=== PATIENT | female | born 1980 | race African-American/Black ===

== ENCOUNTER 2017-01-15 10:35 | Emergency (ER) | payer SELFPAY ==
[2017-01-15] MEDS ORDERED: OXYCODONE-ACETAMINOPHEN 5-325 MG TABLET PO ONE (10:59)
--- NOTE | 2017-01-15 11:02 | ER Document Report ---
ED General - General Chief Complaint: Back Pain Stated Complaint: BACK/LEFT LEG PAIN Time Seen by Provider: 01/15/17 10:59 Notes: Patient presents due to left lower extremity pain. She states the pain is in the calf as well as in the inner left thigh. It is worse with walking. He also feels that her veins been more distended in this leg. In addition she complains of 3 weeks of chest pain and intrascapular back pain. No cough cold or congestion. She denies any history of hormone use. She does smoke. Patient states her mom did have a history of a blood clot. Patient states that the pain in the leg is constant. It is moderate. It is worse with movement and better with rest. It does radiate from the left hip area down into the left calf. It is sharp. TRAVEL OUTSIDE OF THE [place] IN LAST 30 DAYS: No - Related Data Allergies/Adverse Reactions: No Known Allergies Allergy (Unverified 01/15/17 10:40) Past Medical History - General Information source: Patient - Social History Smoking Status: Current Every Day Smoker Chew tobacco use (# tins/day): No Frequency of alcohol use: Occasional Drug Abuse: None Family History: Reviewed & Not Pertinent - Past Medical History Cardiac Medical History: Reports: Hx Hypercholesterolemia, Hx Hypertension Renal/ Medical History: Denies: Hx Peritoneal Dialysis Musculoskeltal Medical History: Reports Hx Arthritis - Immunizations Hx Diphtheria, Pertussis, Tetanus Vaccination: Yes Review of Systems - Review of Systems Constitutional: denies: Chills, Fever Cardiovascular: Chest pain. denies: Palpitations Respiratory: Cough. denies: Short of breath Gastrointestinal: denies: Diarrhea, Vomiting -: Yes All other systems reviewed and negative Physical Exam - Vital signs Vitals: Temp Pulse Resp BP Pulse Ox 98.7 F 82 20 130/74 H 98 01/15/17 10:39 01/15/17 10:39 01/15/17 10:39 01/15/17 10:39 01/15/17 10:39 Interpretation: Normal - General General appearance: Appears well, Alert - HEENT Head: Normocephalic, Atraumatic Eyes: Normal Pupils: PERRL - Respiratory Respiratory status: No respiratory distress Chest status: Nontender Breath sounds: Normal Chest palpation: Normal - Cardiovascular Rhythm: Regular Heart sounds: Normal auscultation Murmur: No - Abdominal Inspection: Normal Distension: No distension Bowel sounds: Normal Tenderness: Nontender Organomegaly: No organomegaly - Back Back: Normal, Nontender - Extremities General upper extremity: Normal inspection, Nontender, Normal color, Normal ROM , Normal temperature General lower extremity: Normal inspection, Nontender, Normal color, Normal ROM , Normal temperature, Normal weight bearing. No: Semaj's sign - Neurological Neuro grossly intact: Yes Cognition: Normal Orientation: AAOx4 [place] Coma Scale Eye Opening: Spontaneous Álvaro Coma Scale Verbal: Oriented Hun[place] Coma Scale Motor: Obeys Commands Álvaro Coma Scale Total: 15 Speech: Normal Motor strength normal: LUE, RUE, LLE, RLE Sensory: Normal - Psychological Associated symptoms: Normal affect, Normal mood - Skin Skin Temperature: Warm Skin Moisture: Dry Skin Color: Normal Course - Vital Signs Vital signs: Temp Pulse Resp BP Pulse Ox 98.7 F 82 20 130/74 H 98 01/15/17 10:39 01/15/17 10:39 01/15/17 10:39 01/15/17 10:39 01/15/17 10:39 - Laboratory Laboratory results interpreted by me: 01/15/17 11:05 Ur Leukocyte Esterase TRACE H - Diagnostic Test Radiology reviewed: Image reviewed, Reports reviewed - US neg for dvt Discharge - Discharge Clinical Impression: Left leg pain Condition: Stable Disposition: HOME, SELF-CARE Additional Instructions: Please call your primary care physician as soon as possible to arrange follow-up Prescriptions: Hydrocodone/Acetaminophen [Benton 5-325 mg Tablet] 1 tab PO Q6 PRN #10 tablet PRN Reason: Forms: Elevated Blood Pressure Referrals: GILMAR MALAGON MD [ACTIVE STAFF] - Follow up as needed
[2017-01-15 11:33] LABS: APPEARANCE,URINE SLIGHTLY-CLOUDY; BILIRUBIN,URINE NEGATIVE (NEGATIVE); GLUCOSE, URINE NEGATIVE (NEGATIVE); KETONES,URINE NEGATIVE (NEGATIVE); LEUKOCYTE ESTERASE,URINE TRACE (NEGATIVE); NITRITE,URINE NEGATIVE (NEGATIVE); PROTEIN,URINE NEGATIVE (NEGATIVE); UROBILINOGEN,URINE NEGATIVE mg/dL (<2.0)
--- NOTE | 2017-01-15 12:07 | RADIOLOGY REPORT (SQ) ---
EXAM DESCRIPTION: CHEST PA/LAT COMPLETED DATE/TIME: 01/15/2017 11:59 am REASON FOR STUDY: cp/intrascap pain COMPARISON: None. EXAM PARAMETERS: NUMBER OF VIEWS: two views TECHNIQUE: Digital Frontal and Lateral radiographic views of the chest acquired. RADIATION DOSE: NA LIMITATIONS: none FINDINGS: LUNGS AND PLEURA: No opacities, masses or pneumothorax. No pleural effusion. MEDIASTINUM AND HILAR STRUCTURES: No masses or contour abnormalities. HEART AND VASCULAR STRUCTURES: Heart normal size. No evidence for failure. BONES: No acute findings. HARDWARE: None in the chest. OTHER: No other significant finding. IMPRESSION: NO SIGNIFICANT RADIOGRAPHIC FINDING IN THE CHEST. TECHNICAL DOCUMENTATION: JOB ID: [id number] [employer]- All Rights Reserved
--- NOTE | 2017-01-15 14:07 | RADIOLOGY REPORT (SQ) ---
EXAM DESCRIPTION: VENOUS UNILATERAL LOWER COMPLETED DATE/TIME: 01/15/2017 1:58 pm REASON FOR STUDY: left leg pain COMPARISON: None. TECHNIQUE: Dynamic and static rashid scale and color images acquired of the left leg venous system. Se lected spectral images acquired with additional compression and augmentation maneuvers. The contralat eral common femoral vein and saphenofemoral junction were also imaged. Images stored on PACS. LIMITATIONS: None. FINDINGS: COMMON FEMORAL: Normal phasicity, compression and augmentation. No visualized echogenic ma terial on rashid scale. No defects on color images. FEMORAL: Normal compression and augmentation. No visualized echogenic material on rashid scale. No defe cts on color images. POPLITEAL: Normal compression, augmentation. No visualized echogenic material on rashid scale. No defec ts on color images. CALF VESSELS: Normal compression, augmentation. No visualized echogenic material on rashid scale. No de fects on color images. GSV and SSV: Normal compression, augmentation. No visualized echogenic material on rashid scale. No def ects on color images. ANY DEEP VENOUS INSUFFICIENCY: Not evaluated. ANY EVIDENCE OF POPLITEAL CYST: No. OTHER: No other significant finding. CONTRALATERAL COMMON FEMORAL VEIN AND SAPHENOFEMORAL JUNCTION: Normal phasicity, compression and augmentation. No visualized echogenic material on rashid scale. No de fects on color images. IMPRESSION: NO EVIDENCE DVT OR SVT IN THE LEFT LEG. TECHNICAL DOCUMENTATION: JOB ID: [id number] [employer]- All Rights Reserved
[2017-01-15 14:31] VITALS: BP 123/66
== END 2017-01-15 14:25 | disposition home or self-care (01) ==
LOC: ER 10:35
DX: M79.605 Pain in left leg (principal); M54.9 Dorsalgia, unspecified; F17.200 Nicotine dependence, unspecified, uncomplicated
CPT/HCPCS: 71020; 81001; 81025; 93971; 99284

== ENCOUNTER 2017-02-15 05:42 | Emergency (ER) | payer MEDICAID ==
[2017-02-15] MEDS ORDERED: PREDNISONE 20 MG TABLET PO ONE (06:32)
--- NOTE | 2017-02-15 06:42 | ER Document Report ---
ED General - General Chief Complaint: Leg Pain Stated Complaint: LEFT SIDE PAIN Time Seen by Provider: 02/15/17 06:02 TRAVEL OUTSIDE OF THE [place] IN LAST 30 DAYS: No - HPI Patient complains to provider of: Left leg pain Notes: Patient coming in for evaluation of left leg pain. Patient states pain starts in the middle of the gluteus padmaja and then goes down the patient's leg. Patient states has a history of arthritis. Patient denies fevers chills nausea vomiting diarrhea denies any trauma - Related Data Allergies/Adverse Reactions: No Known Allergies Allergy (Unverified 01/15/17 10:40) Past Medical History - Social History Smoking Status: Current Every Day Smoker Chew tobacco use (# tins/day): No Frequency of alcohol use: Social Drug Abuse: None Family History: Reviewed & Not Pertinent Patient has suicidal ideation: No Patient has homicidal ideation: No - Past Medical History Cardiac Medical History: Reports: Hx Hypercholesterolemia, Hx Hypertension Renal/ Medical History: Denies: Hx Peritoneal Dialysis Musculoskeltal Medical History: Reports Hx Arthritis - Immunizations Hx Diphtheria, Pertussis, Tetanus Vaccination: Yes Review of Systems - Review of Systems Constitutional: No symptoms reported EENT: No symptoms reported Cardiovascular: No symptoms reported Respiratory: No symptoms reported Gastrointestinal: No symptoms reported Genitourinary: No symptoms reported Female Genitourinary: No symptoms reported Musculoskeletal: No symptoms reported - Hip pain Skin: No symptoms reported Hematologic/Lymphatic: No symptoms reported Neurological/Psychological: No symptoms reported Physical Exam - Vital signs Vitals: Temp Pulse Resp BP Pulse Ox 98.7 F 101 H 18 129/76 H 97 02/15/17 05:47 02/15/17 05:47 02/15/17 05:47 02/15/17 05:47 02/15/17 05:47 Interpretation: Normal - General General appearance: Appears well, Alert - HEENT Head: Normocephalic, Atraumatic Eyes: Normal Pupils: PERRL - Respiratory Respiratory status: No respiratory distress Chest status: Nontender Breath sounds: Normal Chest palpation: Normal - Cardiovascular Rhythm: Regular Heart sounds: Normal auscultation Murmur: No - Abdominal Inspection: Normal Distension: No distension Bowel sounds: Normal Tenderness: Nontender Organomegaly: No organomegaly - Back Back: Normal, Nontender Notes: Tenderness to palpation of the middle of the gluteus minimus muscle does reproduce symptoms - Extremities General upper extremity: Normal inspection, Nontender, Normal color, Normal ROM , Normal temperature General lower extremity: Normal inspection, Nontender, Normal color, Normal ROM , Normal temperature, Normal weight bearing. No: Semaj's sign - Neurological Neuro grossly intact: Yes Cognition: Normal Orientation: AAOx4 Álvaro Coma Scale Eye Opening: Spontaneous [place] Coma Scale Verbal: Oriented [place] Coma Scale Motor: Obeys Commands [place] Coma Scale Total: 15 Speech: Normal Motor strength normal: LUE, RUE, LLE, RLE Sensory: Normal - Psychological Associated symptoms: Normal affect, Normal mood - Skin Skin Temperature: Warm Skin Moisture: Dry Skin Color: Normal Course - Re-evaluation Re-evalutation: 02/15/17 13:32 The patient presents with low back pain without signs of spinal cord compression , cauda equina syndrome, infection, aneurysm, or other serious etiology. The patient is neurologically intact. Given the extremely low risk of these diagnoses further testing and evaluation for these possibilities does not appear to be indicated at this time. The patient has been instructed to return if the symptoms worsen or change in any way. Patient with classic sciatic symptoms. Will treat with prednisone and anti-inflammatory medications. Patient encouraged follow-up primary care physician. - Vital Signs Vital signs: Temp Pulse Resp BP Pulse Ox 98.1 F 88 18 124/82 97 02/15/17 07:34 02/15/17 07:34 02/15/17 07:34 02/15/17 07:34 02/15/17 07:34 Discharge - Discharge Clinical Impression: Sciatic leg pain Condition: Good Disposition: HOME, SELF-CARE Instructions: Family Physicians / Practices, Sciatica ([facility], [facility]) Additional Instructions: Please follow-up with primary care physicians provided. Return to the ER if symptoms worsen. Take medication as prescribed. Would recommend doing gentle range of motion exercises. You may look on line for piriformis muscle stretches which will help out with your sciatic pain continue to take Tylenol and Motrin for your pain. Take Ultram for very severe pain. Prescriptions: Prednisone [Deltasone 20 mg Tablet] 3 tab PO DAILY 5 Days tablet Tramadol HCl [Ultram 50 mg Tablet] 50 mg PO ASDIR PRN #14 tablet PRN Reason:
[2017-02-15 07:35] VITALS: BP 124/82
== END 2017-02-15 07:35 | disposition home or self-care (01) ==
LOC: ER 05:42
DX: M54.32 Sciatica, left side (principal); M79.605 Pain in left leg; F17.200 Nicotine dependence, unspecified, uncomplicated
CPT/HCPCS: 99283; J7512

== ENCOUNTER 2018-01-15 09:50 | Emergency (ER) | payer SELFPAY ==
[2018-01-15] MEDS ORDERED: ACETAMINOPHEN 325 MG TABLET PO ONE (10:11)
--- NOTE | 2018-01-15 10:17 | ER Document Report ---
ED Extremity Problem, Lower - General Chief Complaint: Foot Pain Stated Complaint: FOOT PAIN Time Seen by Provider: 01/15/18 10:01 Mode of Arrival: Wheelchair Information source: Patient Notes: 37-year-old female presents to ED complaining of right foot and hip and left knee pain. She states she has degenerative hip disease on the right and now it is causing her left knee and right foot to increase in pain with swelling to the right foot and leg. She states she also has peripheral vascular disease and smokes a pack a day. Will order an x-ray of the right hip right foot left knee and venous Doppler for the right leg. TRAVEL OUTSIDE OF THE [place] IN LAST 30 DAYS: No - HPI Patient complains to provider of: Pain, Swelling Location: Foot, Knee, Thigh - hip Occurred: Other - gradual no fall Where: Indoors Onset/Duration: Gradual Quality of pain: Achy, Sharp Severity: Moderate Pain Level: 4 Context: Fell Recent injury: No Associated symptoms: Painful ambulation Exacerbated by: Movement, Walking Relieved by: Nothing - Related Data Allergies/Adverse Reactions: No Known Allergies Allergy (Verified 01/15/18 09:55) Past Medical History - General Information source: Patient - Social History Smoking Status: Current Every Day Smoker Cigarette use (# per day): Yes - ppd Chew tobacco use (# tins/day): No Smoking Education Provided: Yes - 4min Frequency of alcohol use: Occasional Drug Abuse: None Occupation: arcgis developer Lives with: Family Family History: Reviewed & Not Pertinent Patient has suicidal ideation: No Patient has homicidal ideation: No - Past Medical History Cardiac Medical History: Reports: Hx Hypercholesterolemia, Hx Hypertension Pulmonary Medical History: Reports: None EENT Medical History: Reports: None Renal/ Medical History: Reports: None Malignancy Medical History: Reports: None GI Medical History: Reports: None Musculoskeletal Medical History: Reports Hx Arthritis, Reports Hx Musculoskeletal Deformity Skin Medical History: Reports None Psychiatric Medical History: Reports: None Traumatic Medical History: Reports: None Infectious Medical History: Reports: None Past Surgical History: Reports: Hx Tubal Ligation - Immunizations Hx Diphtheria, Pertussis, Tetanus Vaccination: Yes Review of Systems - Review of Systems Constitutional: No symptoms reported EENT: No symptoms reported Cardiovascular: No symptoms reported Respiratory: No symptoms reported Gastrointestinal: No symptoms reported Genitourinary: No symptoms reported Female Genitourinary: No symptoms reported Musculoskeletal: Joint pain - Hip right foot left knee pain, Muscle pain, Muscle stiffness, Other - Swelling to the right leg Skin: No symptoms reported Hematologic/Lymphatic: No symptoms reported Neurological/Psychological: No symptoms reported -: Yes All other systems reviewed and negative Physical Exam - Vital signs Vitals: Temp Pulse Resp BP Pulse Ox 98.4 F 85 20 135/70 H 95 01/15/18 10:02 01/15/18 10:02 01/15/18 10:02 01/15/18 10:02 01/15/18 10:02 Interpretation: Normal - General General appearance: Appears well, Alert - HEENT Head: Normocephalic, Atraumatic Eyes: Normal Pupils: PERRL - Respiratory Respiratory status: No respiratory distress Chest status: Nontender Breath sounds: Normal Chest palpation: Normal - Cardiovascular Rhythm: Regular Heart sounds: Normal auscultation Murmur: No - Abdominal Inspection: Normal Distension: No distension Bowel sounds: Normal Tenderness: Nontender Organomegaly: No organomegaly - Back Back: Normal, Nontender - Extremities General upper extremity: Normal inspection, Nontender, Normal color, Normal ROM , Normal temperature General lower extremity: Normal color, Normal temperature. No: Semaj's sign Hip: Tender, Pain with ROM - Degenerative hip disease Knee: Tender, Pain with ROM, Patellar tendon intact, Popliteal fossa tender, Tender joint line Ankle: Tender, Edema Foot: Tender, Edema, No evidence of FB - Neurological Neuro grossly intact: Yes Cognition: Normal Orientation: AAOx4 [place] Coma Scale Eye Opening: Spontaneous [place] Coma Scale Verbal: Oriented Álvaro Coma Scale Motor: Obeys Commands Álvaro Coma Scale Total: 15 Speech: Normal Motor strength normal: LUE, RUE, LLE, RLE Sensory: Normal - Psychological Associated symptoms: Normal affect, Normal mood - Skin Skin Temperature: Warm Skin Moisture: Dry Skin Color: Normal Course - Re-evaluation Re-evalutation: 01/15/18 12:16 Trace discussed with patient as well is the venous Doppler. CD of x-rays given to patient to follow-up with her orthopedic. She states she goes to Orth though at [facility]. There is no acute changes. Patient is able to move and walk with a even steady gait. She did not fall. Will discharge home. She refused an Tejas wrap a knee immobilizer or crutches. - Vital Signs Vital signs: Temp Pulse Resp BP Pulse Ox 97.5 F 67 20 139/89 H 98 01/15/18 12:20 01/15/18 12:20 01/15/18 12:20 01/15/18 12:20 01/15/18 12:20 - Diagnostic Test Radiology reviewed: Image reviewed, Reports reviewed Discharge - Discharge Clinical Impression: Pain in right hip, Pain in right foot, Pain in right leg Pain in left knee Qualifiers: Chronicity: unspecified Qualified Code(s): M25.562 - Pain in left knee Condition: Stable Disposition: HOME, SELF-CARE Instructions: Family Physicians / Practices Additional Instructions: You were seen today for pain in the right leg right hip and right foot. The x- ray showed no acute changes on the right hip or foot there are chronic changes the venous Doppler was negative for a blood clot. You also have pain in your left knee. It showed some subluxation of the patella but you are able to walk with a steady gait so there may be some tendon or ligament stretching but it is not to the point that she cannot walk. I have given you CDs of your x-rays to take to your orthopedic doctor to follow-up. I have also given you off for several days so that you can call orthopedics and get a follow-up appointment sooner than later. You state you have a Tejas wrap at home please apply this to your knee and to you follow-up with orthopedics. USE OF [id number] IBUPROFEN: Ibuprofen (Advil, Nuprin, Medipren, Motrin IB) is a medication for fever and pain control. In addition, it has anti- inflammatory effects which may be beneficial, especially in the treatment of injuries. It's best to take ibuprofen with food. Persons with ulcer disease or allergy to aspirin should notify their physician of this before taking ibuprofen. Ibuprofen can be given every four to six hours, for a total of four doses daily. Age Pain or fever dose Antiinflammatory dose 6-8 yr 200 mg (1 tab) 200 mg (1 tab) 9-11 yr 200 mg (1 tab) 200-400 mg (1-2 tab) 11-14 yr 200-400 mg (1-2 tab) 400 mg (2 tab) 15-adult 400 mg (2 tab) 600 mg (3 tab) FOLLOW-UP CARE: If you have been referred to a physician for follow-up care, call the physician s office for an appointment as you were instructed or within the next two days. If you experience worsening or a significant change in your symptoms, notify the physician immediately or return to the Emergency Department at any time for re-evaluation. Forms: Elevated Blood Pressure, Smoking Cessation Education, Return to Work
--- NOTE | 2018-01-15 11:04 | RADIOLOGY REPORT (SQ) ---
EXAM DESCRIPTION: KNEE LEFT 4 VIEW COMPLETED DATE/TIME: 01/15/2018 10:45 am REASON FOR STUDY: pain swelling COMPARISON: None. NUMBER OF VIEWS: Four views. TECHNIQUE: AP, lateral, and both oblique radiographic images acquired of the left knee. LIMITATIONS: None. FINDINGS: MINERALIZATION: Normal. BONES: No acute fracture or dislocation. No worrisome bone lesions. JOINT: On the AP view the patella appears to be subluxed laterally and clinical correlation is recomm ended. The patella is also identified somewhat proximally in position and the possibility of a aviles lar tendon injury should be considered. SOFT TISSUES: No soft tissue swelling. No radio-opaque foreign body. OTHER: No other significant finding. IMPRESSION: No acute fracture. On the AP view the patella appears to be subluxed laterally and prox imally as noted above and clinical correlation is recommended. Other findings as noted above TECHNICAL DOCUMENTATION: JOB ID: [id number] [employer]- All Rights Reserved Reading location - IP/workstation name: [email or web address]
--- NOTE | 2018-01-15 11:17 | RADIOLOGY REPORT (SQ) ---
EXAM DESCRIPTION: FOOT RIGHT COMPLETE COMPLETED DATE/TIME: 01/15/2018 10:45 am REASON FOR STUDY: pain swelling COMPARISON: None. NUMBER OF VIEWS: Three views. TECHNIQUE: AP, lateral and oblique radiographic images acquired of the right foot. LIMITATIONS: None. FINDINGS: MINERALIZATION: Normal. BONES: No acute fracture or dislocation. No worrisome bone lesions. JOINTS: No effusions. SOFT TISSUES: No soft tissue swelling. No foreign body. OTHER: No other significant finding. IMPRESSION: NEGATIVE STUDY OF THE RIGHT FOOT. NO RADIOGRAPHIC EVIDENCE OF ACUTE INJURY. TECHNICAL DOCUMENTATION: JOB ID: [id number] [employer]- All Rights Reserved Reading location - IP/workstation name: [email or web address]
--- NOTE | 2018-01-15 11:44 | RADIOLOGY REPORT (SQ) ---
EXAM DESCRIPTION: HIP RIGHT AP/LATERAL COMPLETED DATE/TIME: 01/15/2018 10:45 am REASON FOR STUDY: pain swelling COMPARISON: None. NUMBER OF VIEWS: Two views. TECHNIQUE: AP pelvis and additional frog-leg view of the right hip. LIMITATIONS: None. FINDINGS: MINERALIZATION: Normal. RIGHT HIP: No fracture dislocation. Mild degenerative changes. LEFT HIP: Mild degenerative changes. PUBIS AND ISCHIUM: No fracture. PELVIS: No fracture. SACRUM: No fracture or dislocation. No worrisome bone lesions. LOWER LUMBAR SPINE: No fracture or dislocation. No worrisome bone lesions. No significant disc disea se. SOFT TISSUES: No findings. OTHER: No other significant finding. IMPRESSION: Degenerative changes of both hips. TECHNICAL DOCUMENTATION: JOB ID: [id number] [employer]- All Rights Reserved Reading location - IP/workstation name: [email or web address]
[2018-01-15 12:21] VITALS: BP 139/89
--- NOTE | 2018-01-15 15:21 | XCELERA REPORT ---
[address] [address] Lower Extremity Venous Evaluation Name: MARK RASHID Age: 37 yrs Gender: Female : 1980 Patient Status: Emergency Patient Location: ER Study Date: 01/15/2018 11:20 AM Procedure: Color flow and duplex imaging of the veins of the right lower extremity as well as the left Common Femoral vein. Reason For Study: right swelling Ordering Physician: SALINAS FANG Performed By: Jean Garcias Right Sided Venous Evaluation Normal vessel filling wall to wall, compression and augmentation as well as Colour flow down to the infrageniculate veins. Left Sided Venous Evaluation The left common femoral vein is fully compressible. Spontaneous and phasic flow is present in the left common femoral vein. Interpretation Summary No duplex evidence of DVT or obstruction in the right lower extremity nor in the left Common Femoral vein. : SALINAS FANG > Tyrone Posey
== END 2018-01-15 12:27 | disposition home or self-care (01) ==
LOC: ER 09:50
DX: M79.671 Pain in right foot (principal); M25.562 Pain in left knee; M25.551 Pain in right hip; M79.604 Pain in right leg; F17.210 Nicotine dependence, cigarettes, uncomplicated; E78.00 Pure hypercholesterolemia, unspecified; I10 Essential (primary) hypertension
CPT/HCPCS: 93971; 99284; 99406

== ENCOUNTER 2018-04-20 08:50 | Emergency (ER) | payer MEDICAID ==
[2018-04-20 09:02] VITALS: BP 136/78
[2018-04-20] MEDS ORDERED: CEPHALEXIN 500 MG CAPSULE PO ONE (09:21)
[2018-04-20] MEDS ORDERED: SULFAMETHOXAZOLE/TRIMETHOPRIM 800-160 MG TABLET PO ONE (09:21)
--- NOTE | 2018-04-20 09:24 | ER Document Report ---
HPI - HPI Pain Level: 4 Notes: Patient is a 37-year-old female who presents to the emergency department with chief complaint of pain to her left lower extremity. Patient reports that she has an abscess on her left casanova area. She states it has been there for several days. She reports last night it drained and she did have some relief after that. Patient reports history of having abscesses in the past, states she has had to have them drained. Patient denies any history of diabetes or MRSA. Past Medical History - General Information source: Patient - Social History Smoking Status: Never Smoker Frequency of alcohol use: None Drug Abuse: None Family History: Reviewed & Not Pertinent - Past Medical History Cardiac Medical History: Reports: Hx Hypercholesterolemia, Hx Hypertension Renal/ Medical History: Denies: Hx Peritoneal Dialysis Musculoskeletal Medical History: Reports Hx Arthritis, Reports Hx Musculoskeletal Deformity Past Surgical History: Reports: Hx Tubal Ligation - Immunizations Hx Diphtheria, Pertussis, Tetanus Vaccination: Yes Vertical Provider Document - CONSTITUTIONAL Notes: PHYSICAL EXAMINATION: GENERAL: Well-appearing, well-nourished and in no acute distress. HEAD: Atraumatic, normocephalic. EYES: Pupils equal round extraocular movements intact, conjunctiva are normal. ENT: Nares patent NECK: Normal range of motion LUNGS: No respiratory distress Musculoskeletal: Normal range of motion NEUROLOGICAL: Normal speech, normal gait. PSYCH: Normal mood, normal affect. SKIN: Warm, Dry, normal turgor, 2 cm x 2 cm area of induration and fluctuance noted to left lower extremity below the knee. There is a larger surrounding area of erythema that extends just above the ankle joint. This extension is approximately 8 cm past the area of the abscess. - INFECTION CONTROL TRAVEL OUTSIDE OF THE [place] IN LAST 30 DAYS: No Course - Re-evaluation Re-evalutation: 04/20/18 09:23 Incision and drainage performed, see procedure note. Patient discharged home in stable condition. - Vital Signs Vital signs: Temp Pulse Resp BP Pulse Ox 99.1 F 84 136/78 H 95 04/20/18 09:01 04/20/18 09:01 04/20/18 09:01 04/20/18 09:01 Procedures - Incision and Drainage Left leg Type: Simple Anesthetic type: 1% Lidocaine Blade size: 11 I&D procedure: Betadine prep applied, Shurclens applied Incision Method: Incision made by scalpel Discharge - Discharge Clinical Impression: Abscess Condition: Stable Disposition: HOME, SELF-CARE Additional Instructions: ABSCESS: You have an abscess (boil). This a pus-forming infection, usually due to staph. Some boils may be left to drain on their own, but most require lancing. From the time the tender lump first appears, it may be three or four days before the abscess is ready to ivett. Local heat and rest help at this stage of treatment. An antibiotic may prevent spread of the infection. Once the abscess is opened, packing may be placed into it. This is done so pus is not sealed inside by premature closure of the cavity. The packing will be removed at your follow-up visit or you may be advised to remove it yourself at home. Sometimes this packing must be replaced a few times during healing. The wound will heal with surprisingly little scar. Depending on the size and location of an abscess, healing can take one to four weeks. You may shower and wash the area around the incision site two or three times a day. Antibiotics may be prescribed, but are usually not necessary after an abscess has been drained. If you develop fever, chills, worsening pain, or increasing swelling in the area, call the doctor or return immediately. POST INCISION AND DRAINAGE: You have had an incision made to allow drainage of an abscess. The incision must remain open so that pus and debris can drain from the wound. If the abscess cavity is large, packing is placed. This keeps the tissues from collapsing and trapping pus inside, while the body shrinks the cavity. The packing may need to be replaced every day or two. The physician will instruct you on the packing. Keep a bulky dressing over the area. Replace it if it becomes saturated with blood or pus. Do not disturb the packing (if present). You may shower and cleanse the area with gentle soap and warm water two or three times a day. Local warmth may be soothing, and may promote faster healing. Return if you develop high fever or chills, or if you note spreading redness, increasing swelling, or increasing tenderness. CEPHALEXIN: The antibiotic you've been prescribed is a member of the cephalosporin class. This type of antibiotic covers a wide variety of infections, including those of the skin, lungs, and urinary tract. It's useful for staph infections. This antibiotic is slightly similar to the penicillin family. In rare cases , a person who is allergic to penicillin will also be allergic to this medication. If you have had a severe allergic reaction to penicillin, and have not taken this antibiotic since that time, notify your doctor. Antibiotics which cover many germs ("broad spectrum" antibiotics) are more likely to cause diarrhea or "yeast" infections. Women prone to vaginal yeast problems may suffer an attack after taking this antibiotic. In infants, oral thrush (white spots "stuck" on the cheek) or yeast diaper rash may result. See your doctor if these problems occur. Call at once if you develop itching, hives , shortness of breath, or lightheadedness. TRIMETHOPRIM-SULFA: You have been given a prescription for trimethoprim-sulfa (TMS, Septra, Bactrim). This is a combination antibiotic of the sulfa class, often used for urinary tract infections, middle ear infections, bronchitis, shigella intestinal infection, and Pneumocystis pneumonia. TMS is usually well-tolerated. Occasional side effects include nausea and decreased appetite. Septra is not recommended for infants less than two months of age. Do not take this medication if you have experienced severe side effects or allergy to sulfa medicine. You should stop this medicine at once and contact your physician if you develop any rash, joint pain, shortness of breath, bruising, or jaundice ( yellow color in the skin), or if you develop any other new or unusual symptoms. FOLLOW-UP CARE: Most simple abscesses will not require a follow up visit. If you had packing placed in the abscess, remove it as instructed by the physician. If you have been referred to a physician for follow-up care, call the physicians office for an appointment as you were instructed or within the next two days. If you experience worsening or a significant change in your symptoms, return to the Emergency Department at any time for re-evaluation. Please take the antibiotics as prescribed. Complete the entire course even if your symptoms resolved. Take ibuprofen 600 mg every 6 hours, this will help with the inflammation. Use warm soaks to the area 3-4 times daily. Keep clean and dry. Follow-up with your primary care provider in the next 3-5 days for follow-up. Return to the emergency department if you develop any of the above warning signs such as worsening of the pain, streaking from the area, fever or any other symptom that is concerning to you. Prescriptions: Hydrocodone/Acetaminophen [Hydrocodon-Acetaminophen 5-325] 1 each PO Q4H PRN # 10 tablet PRN Reason: For Pain Forms: Return to Work
== END 2018-04-20 10:00 | disposition home or self-care (01) ==
LOC: ER 08:50
DX: L02.416 Cutaneous abscess of left lower limb (principal); M79.605 Pain in left leg; I10 Essential (primary) hypertension
CPT/HCPCS: 99283; 10060; J3490

== ENCOUNTER 2018-07-18 10:19 | Emergency (ER) | payer SELFPAY ==
[2018-07-18] MEDS ORDERED: IPRATROPIUM/ALBUTEROL 0.5-2.5 MG/3 ML AMPUL NEB ONE ×2 (10:51→11:31)
[2018-07-18] MEDS ORDERED: PREDNISONE 20 MG TABLET PO ONE (10:52)
--- NOTE | 2018-07-18 10:53 | ER Document Report ---
ED Medical Screen (RME) - General Chief Complaint: Cough Stated Complaint: FLU SYMPTOMS Time Seen by Provider: 07/18/18 10:49 TRAVEL OUTSIDE OF THE [place] IN LAST 30 DAYS: No - HPI Notes: 07/18/18 10:52 Patient smokes 10 cigarettes a day cough feeling unwell body aches for the last 4 days no flu vaccination - Related Data Allergies/Adverse Reactions: No Known Allergies Allergy (Verified 01/15/18 09:55) Past Medical History - Past Medical History Cardiac Medical History: Reports: Hx Hypercholesterolemia, Hx Hypertension Renal/ Medical History: Denies: Hx Peritoneal Dialysis Musculoskeltal Medical History: Reports Hx Arthritis, Reports Hx Musculoskeletal Deformity Past Surgical History: Reports: Hx Tubal Ligation - Immunizations Hx Diphtheria, Pertussis, Tetanus Vaccination: Yes Review of Systems - Review of Systems Respiratory: Cough, Short of breath Physical Exam - Vital signs Vitals: Temp Pulse Resp BP Pulse Ox 98.8 F 100 16 159/85 H 94 07/18/18 10:38 07/18/18 10:38 07/18/18 10:38 07/18/18 10:38 07/18/18 10:38 - Respiratory Breath sounds: Rhonchi, Wheezing - Abdominal Inspection: Morbidly Obese Course - Vital Signs Vital signs: Temp Pulse Resp BP Pulse Ox 98.8 F 100 16 159/85 H 94 07/18/18 10:38 07/18/18 10:38 07/18/18 10:38 07/18/18 10:38 07/18/18 10:38
[2018-07-18 11:30] LABS: A TYPE INFLUENZA AG NEGATIVE (NEGATIVE); B INFLUENZA AG NEGATIVE (NEGATIVE)
--- NOTE | 2018-07-18 11:32 | ER Document Report ---
ED General - General Chief Complaint: Cough Stated Complaint: FLU SYMPTOMS Time Seen by Provider: 07/18/18 10:49 Primary Care Provider: SHAYY HEADLEY MD [Primary Care Provider] - Follow up as needed KASANDRA STILES MD [ACTIVE STAFF] - Follow up in 3-5 days Mode of Arrival: Ambulatory Information source: Patient Notes: This is a 37-year-old female with a history of childhood asthma who presents to the emergency room with sore throat, cough, congestion, shortness of breath and wheezing. She does report significant body aches. She denies any significant headache or photophobia or neck stiffness. She reports sinus congestion and sinus discharge for 10 days. TRAVEL OUTSIDE OF THE [place] IN LAST 30 DAYS: No - HPI Onset: Last week Onset/Duration: Gradual Quality of pain: No pain Associated symptoms: Chills, Nonproductive cough, Fever, Shortness of breath Exacerbated by: Denies Relieved by: Denies Similar symptoms previously: No Recently seen / treated by doctor: No - Related Data Allergies/Adverse Reactions: No Known Allergies Allergy (Verified 01/15/18 09:55) Past Medical History - General Information source: Patient - Social History Smoking Status: Current Every Day Smoker Cigarette use (# per day): Yes - 10 cigarettes a day Chew tobacco use (# tins/day): No Frequency of alcohol use: None Drug Abuse: None Lives with: Family Family History: Reviewed & Not Pertinent Patient has suicidal ideation: No Patient has homicidal ideation: No - Past Medical History Cardiac Medical History: Reports: Hx Hypercholesterolemia, Hx Hypertension Renal/ Medical History: Denies: Hx Peritoneal Dialysis Musculoskeletal Medical History: Reports Hx Arthritis, Reports Hx Musculoskelet al Deformity Past Surgical History: Reports: Hx Tubal Ligation - Immunizations Hx Diphtheria, Pertussis, Tetanus Vaccination: Yes Review of Systems - Review of Systems Constitutional: Chills, Fever EENT: Sinus pressure, Sinus discharge Cardiovascular: No symptoms reported Respiratory: See HPI, Short of breath, Wheezing Gastrointestinal: No symptoms reported Genitourinary: No symptoms reported Female Genitourinary: No symptoms reported Musculoskeletal: Other - Muscle aches and pains Skin: No symptoms reported. denies: Lesions, Rash Hematologic/Lymphatic: No symptoms reported Neurological/Psychological: denies: Seizure, Headaches Physical Exam - Vital signs Vitals: Temp Pulse Resp BP Pulse Ox 98.8 F 100 16 159/85 H 94 07/18/18 10:38 07/18/18 10:38 07/18/18 10:38 07/18/18 10:38 07/18/18 10:38 Notes: Physical exam: GENERAL: Patient is alert and oriented and answering questions. Her oxygen saturation was 94% on room air. Her blood pressure is 159/85. She is currently afebrile. HEAD: Atraumatic, normocephalic. EYES: Pupils equal round and reactive to light, extraocular movements intact, sclera anicteric, conjunctiva are normal. ENT: TMs normal, nares patent, oropharynx clear without exudates. Moist mucous membranes. NECK: Normal range of motion, supple without obvious mass or JVD. LUNGS: Bilateral wheezing HEART: Regular rate and rhythm without murmurs, rubs or gallops. ABDOMEN: Soft, normoactive bowel sounds. No tenderness to palpation. No guarding, no rebound. No masses appreciated. EXTREMITIES: Normal range of motion, no pitting or edema. No clubbing or cyanosis. NEUROLOGICAL: Cranial nerves II through XII grossly intact. Normal speech, moving all extremities. PSYCH: Normal mood, normal affect. SKIN: Warm, Dry, normal turgor, no rashes or lesions noted. Course - Re-evaluation Re-evalutation: 07/18/18 19:31 Patient was treated with steroids, dual nebs. Her wheezing did improve. She was ambulated around the emergency room and she looked fine states she was feeling better. Given her sinus symptoms for approximately 10 days, will treat for an acute sinusitis which is caused bronchospasm. Will send home with prednisone and albuterol nebulizers (she does have a home nebulizer). We will also give her an inhaler to go home with. - Vital Signs Vital signs: Temp Pulse Resp BP Pulse Ox 98.9 F 92 12 137/82 H 95 07/18/18 13:14 07/18/18 13:14 07/18/18 13:14 07/18/18 13:14 07/18/18 13:14 - Diagnostic Test Radiology reviewed: Image reviewed, Reports reviewed - X-ray shows no pneumonia Discharge - Discharge Clinical Impression: Sinusitis, Bronchospasm Condition: Stable Disposition: HOME, SELF-CARE Additional Instructions: As we discussed, the chest x-ray did not show pneumonia and the flu studies were negative. Your wheezing a lot. I think the sinus drainage from your sinus infection is causing you to have bronchospasm. Take the antibiotics as prescribed. Use "simply saline" nasal spray: Several times a day for both nostrils. This will keep your draining so that your sinuses can fully heal. Take the prednisone as prescribed. Take the probiotics [id number] (Andorran yogurt, Shane active probiotic drink): These are usually sold next to the [employer] and [employer]. Take the albuterol with nebulizer as needed every 4-6 hours. Return to the emergency room for worsening shortness of breath, worsening weakness, any concerns or getting worse. Prescriptions: Albuterol Sulfate [Albuterol Sulfate 5mg/1 mL] 5 mg PO Q4 PRN #14 ml PRN Reason: Amox Tr/Potassium Clavulanate [Augmentin 875-125 Tablet] 1 tab PO BID #20 tablet Prednisone [Deltasone 20 mg Tablet] 3 tab PO DAILY 5 Days tablet Forms: Return to Work Referrals: SHAYY HEADLEY MD [Primary Care Provider] - Follow up as needed KASANDRA STILES MD [ACTIVE STAFF] - Follow up in 3-5 days
--- NOTE | 2018-07-18 11:35 | RADIOLOGY REPORT (SQ) ---
EXAM DESCRIPTION: CHEST 2 VIEWS COMPLETED DATE/TIME: 07/18/2018 11:25 am REASON FOR STUDY: sob COMPARISON: Two-view chest 01/15/2017 EXAM PARAMETERS: NUMBER OF VIEWS: two views TECHNIQUE: Digital Frontal and Lateral radiographic views of the chest acquired. RADIATION DOSE: NA LIMITATIONS: none FINDINGS: LUNGS AND PLEURA: No opacities, masses or pneumothorax. No pleural effusion. MEDIASTINUM AND HILAR STRUCTURES: No masses or contour abnormalities. HEART AND VASCULAR STRUCTURES: Heart normal size. No evidence for failure. BONES: No acute findings. HARDWARE: None in the chest. OTHER: No other significant finding. IMPRESSION: NO ACUTE RADIOGRAPHIC FINDING IN THE CHEST. TECHNICAL DOCUMENTATION: JOB ID: [id number] [employer]- All Rights Reserved Reading location - IP/workstation name: [email or web address]
[2018-07-18] MEDS ORDERED: ALBUTEROL SULFATE HFA (90 MCG/PUFF) 8 GM MDI (1 MDI/ER DISP) IH PRN (12:58)
[2018-07-18 13:16] VITALS: BP 137/82
== END 2018-07-18 13:32 | disposition home or self-care (01) ==
LOC: ER 10:19
DX: J98.01 Acute bronchospasm (principal); J01.90 Acute sinusitis, unspecified; R05 Cough; J02.9 Acute pharyngitis, unspecified; R06.02 Shortness of breath; R06.2 Wheezing; M79.10 Myalgia, unspecified site; R09.81 Nasal congestion; R50.9 Fever, unspecified; I10 Essential (primary) hypertension; F17.210 Nicotine dependence, cigarettes, uncomplicated
CPT/HCPCS: 99284; 87804; 71046; J7512; J3490; J7620

== ENCOUNTER 2018-08-21 10:21 | Emergency (ER) | payer SELFPAY ==
[2018-08-21] MEDS ORDERED: IPRATROPIUM/ALBUTEROL 0.5-2.5 MG/3 ML AMPUL NEB ONE (12:24)
--- NOTE | 2018-08-21 12:33 | ER Document Report ---
ED Medical Screen (RME) - General Chief Complaint: Urinary Problem Stated Complaint: BLURRED VISION Time Seen by Provider: 08/21/18 12:21 Primary Care Provider: SHAYY HEADLEY MD [Primary Care Provider] - Follow up as needed Notes: 37-year-old female patient with multiple complaints complaining of cough, wheeze, increased urination, weakness, blurred vision and generally not feeling well. I have greeted and performed a rapid initial assessment of this patient. A comprehensive ED assessment and evaluation of the patient, analysis of test results and completion of the medical decision making process will be conducted by additional ED providers. TRAVEL OUTSIDE OF THE [place] IN LAST 30 DAYS: No - Related Data Allergies/Adverse Reactions: No Known Allergies Allergy (Verified 08/21/18 10:23) Past Medical History - Past Medical History Cardiac Medical History: Reports: Hx Hypercholesterolemia, Hx Hypertension Renal/ Medical History: Denies: Hx Peritoneal Dialysis Musculoskeltal Medical History: Reports Hx Arthritis, Reports Hx Musculoskeletal Deformity Past Surgical History: Reports: Hx Tubal Ligation - Immunizations Hx Diphtheria, Pertussis, Tetanus Vaccination: Yes Physical Exam - Notes Notes: Physical exam: Expiratory wheezes bilaterally, tachycardia Doctor's Discharge - Discharge Referrals: SHAYY HEADLEY MD [Primary Care Provider] - Follow up as needed
[2018-08-21 12:53] LABS: ABSOLUTE BASOPHILS # (AUTO) 0.1 10^3/uL (0.0-0.2); ABSOLUTE EOSINOPHILS # (AUTO) 0.1 10^3/uL (0.0-0.6); ABSOLUTE LYMPHOCYTES (AUTO) 2.4 10^3/uL (0.5-4.7); ABSOLUTE MONOCYTES (AUTO) 1.5 10^3/uL (0.1-1.4); ABSOLUTE NEUT (AUTO) 11.8 10^3/uL (1.7-8.2); BASOPHILS % (AUTO) 0.9 % (0-2); EOSINOPHILS % (AUTO) 0.6 % (0-6); HEMATOCRIT 44.4 % (36.0-47.0); HEMOGLOBIN 14.9 g/dL (12.0-15.5); LYMPHOCYTES % (AUTO) 15.2 % (13-45); MEAN CORPUSCULAR HEMOGLOBIN 28.9 pg (27.0-33.4); MEAN CORPUSCULAR HGB CONC 33.6 g/dL (32.0-36.0); MEAN CORPUSCULAR VOLUME 86 fl (80-97); MONOCYTES % (AUTO) 9.4 % (3-13); PLATELET COUNT 228 10^3/uL (150-450); RED BLOOD COUNT 5.17 10^6/uL (3.72-5.28); RED CELL DISTRIBUTION WIDTH 15.4 % (11.5-14.0); SEGMENTED NEUTROPHILS % (AUTO) 73.9 % (42-78); TOTAL CELLS COUNTED % (AUTO) 100 %
[2018-08-21 12:57] LABS: APPEARANCE,URINE CLEAR; BILIRUBIN,URINE NEGATIVE (NEGATIVE); COLOR,URINE STRAW; GLUCOSE, URINE >=500 mg/dL (NEGATIVE); KETONES,URINE NEGATIVE (NEGATIVE); LEUKOCYTE ESTERASE,URINE NEGATIVE (NEGATIVE); NITRITE,URINE NEGATIVE (NEGATIVE); PROTEIN,URINE NEGATIVE (NEGATIVE); URINE SPECIFIC GRAVITY 1.024; UROBILINOGEN,URINE NEGATIVE mg/dL (<2.0)
[2018-08-21 13:11] LABS: ALANINE AMINOTRANSFERASE 24 U/L (9-52); ALBUMIN 4.4 g/dL (3.5-5.0); ALKALINE PHOSPHATASE 209 U/L (38-126); ANION GAP 12 (5-19); ASPARTATE AMINO TRANSFERASE 18 U/L (14-36); BILIRUBIN,DIRECT 0.3 mg/dL (0.0-0.4); BILIRUBIN,TOTAL 0.4 mg/dL (0.2-1.3); BLOOD UREA NITROGEN 39 mg/dL (7-20); CALCIUM 10.3 mg/dL (8.4-10.2); CARBON DIOXIDE 27 mmol/L (22-30); CHLORIDE 98 mmol/L (98-107); POTASSIUM 5.2 mmol/L (3.6-5.0); SODIUM 137.4 mmol/L (137-145); TOTAL PROTEIN 8.2 g/dL (6.3-8.2)
[2018-08-21 13:23] LABS: GLUCOSE 740 mg/dL (75-110)
--- NOTE | 2018-08-21 13:29 | RADIOLOGY REPORT (SQ) ---
EXAM DESCRIPTION: CHEST 2 VIEWS COMPLETED DATE/TIME: 08/21/2018 1:13 pm REASON FOR STUDY: sob COMPARISON: Two-view chest 07/18/2018, 01/15/2017 EXAM PARAMETERS: NUMBER OF VIEWS: two views TECHNIQUE: Digital Frontal and Lateral radiographic views of the chest acquired. RADIATION DOSE: NA LIMITATIONS: none FINDINGS: LUNGS AND PLEURA: No opacities, masses or pneumothorax. No pleural effusion. MEDIASTINUM AND HILAR STRUCTURES: No masses or contour abnormalities. HEART AND VASCULAR STRUCTURES: Heart normal size. No evidence for failure. BONES: No acute findings. HARDWARE: None in the chest. OTHER: No other significant finding. IMPRESSION: NO ACUTE RADIOGRAPHIC FINDING IN THE CHEST. TECHNICAL DOCUMENTATION: JOB ID: [id number] [employer]- All Rights Reserved Reading location - IP/workstation name: [email or web address]
[2018-08-21] MEDS ORDERED: INSULIN REG, HUMAN 100 UNIT/ML 3 ML VIAL (PYX) SUBCUT ONE (13:30)
[2018-08-21] MEDS ORDERED: NORMAL SALINE 1000 ML 1,000 ML IV ONE ×2 (13:30→17:52)
[2018-08-21 15:25] LABS: VENOUS BLOOD BASE EXCESS 3.1 mmol/L; VENOUS BLOOD HCO3 29.6 mmol/L (20-32); VENOUS BLOOD PCO2 52.2 mmHg (35-63); VENOUS BLOOD PH 7.37 (7.30-7.42)
[2018-08-21] MEDS ORDERED: INSULIN REG, HUMAN 100 UNIT/ML 3 ML VIAL (PYX) IV ONE (16:38)
--- NOTE | 2018-08-21 17:52 | ER Document Report ---
ED General - General Chief Complaint: Urinary Problem Stated Complaint: BLURRED VISION Time Seen by Provider: 08/21/18 12:21 Primary Care Provider: SHAYY HEADLEY MD [ACTIVE STAFF] - Follow up as needed TRAVEL OUTSIDE OF THE [place] IN LAST 30 DAYS: No - HPI Notes: Patient presents to the emergency department for evaluation of multiple complaints. She states she has had blurred vision, increased urinary frequency, generalized malaise and weakness for the last several days. She is also had a cough and a minimal sore throat. No known fevers. - Related Data Allergies/Adverse Reactions: No Known Allergies Allergy (Verified 08/21/18 10:23) Past Medical History - General Information source: Patient - Social History Smoking Status: Current Every Day Smoker Frequency of alcohol use: Rare Drug Abuse: None Family History: DM Patient has suicidal ideation: No Patient has homicidal ideation: No - Past Medical History Cardiac Medical History: Reports: Hx Hypercholesterolemia, Hx Hypertension Renal/ Medical History: Denies: Hx Peritoneal Dialysis Musculoskeletal Medical History: Reports Hx Arthritis, Reports Hx Musculoskeletal Deformity Past Surgical History: Reports: Hx Tubal Ligation - Immunizations Hx Diphtheria, Pertussis, Tetanus Vaccination: Yes Review of Systems - Review of Systems Constitutional: See HPI, Malaise, Weakness EENT: See HPI Cardiovascular: No symptoms reported Respiratory: No symptoms reported Gastrointestinal: No symptoms reported Genitourinary: See HPI Musculoskeletal: No symptoms reported Skin: No symptoms reported Neurological/Psychological: No symptoms reported Physical Exam - Vital signs Vitals: Temp Pulse Resp BP Pulse Ox 99.2 F 118 H 24 H 143/97 H 95 08/21/18 12:24 08/21/18 12:24 08/21/18 12:24 08/21/18 12:24 08/21/18 12:24 Interpretation: Tachycardic - Notes Notes: Vital signs reviewed, please refer to chart. Patient is normocephalic, atraumatic. Pupils equal round, reactive to light. Pharynx is without erythema or exudate. Neck is supple without meningismus. Heart is regular rate and rhythm. Lungs are clear to auscultation bilaterally. Abdomen is soft, nontender, normoactive bowel sounds throughout. Extremities without cyanosis, clubbing, edema. Peripheral pulses are equal. Skin is warm and dry. Patient is awake, alert, neurological exam is nonfocal. Course - Re-evaluation Re-evalutation: 08/21/18 17:46 Presents to the emergency department for evaluation. She has initial orders as placed by triage. She is found to be a new onset diabetic. Her blood sugars over 700, her A1c is over 9. She is given subcutaneous insulin by in triage, given IV insulin myself. She remained stable throughout the course of her stay. Recheck after IV fluids revealed a resolution of her tachycardia. Her heart rate was in the 88-92 range. At 1705, I spoke with Catalina, a nurse practitioner at [facility]. We discussed options with this patient. She states she had actually evaluated this patient a few months ago and had an A1c done which was normal. At this point my suspicion is that she is a simple new onset type II diabetic. She remained stable throughout the course of her stay. She is feeling improved. 08/21/18 18:42 Patient feeling improved. Blood sugar 340. Counseled on starting metformin as per family nurse practitioner's suggestion. Counseled on dietary and lifestyle changes. She is to return with worsening. - Vital Signs Vital signs: Temp Pulse Resp BP Pulse Ox 99.2 F 118 H 24 H 143/97 H 95 08/21/18 12:24 08/21/18 12:24 08/21/18 12:24 08/21/18 12:24 08/21/18 12:24 - Laboratory Result Diagrams: 08/21/18 12:43 08/21/18 12:43 Laboratory results interpreted by me: 08/21/18 08/21/18 08/21/18 12:43 12:43 12:43 WBC 16.0 H RDW 15.4 H Absolute Neutrophils 11.8 H Absolute Monocytes 1.5 H Potassium 5.2 H BUN 39 H Glucose 740 H* Hemoglobin A1c % 9.4 H Calcium 10.3 H Alkaline Phosphatase 209 H Urine Glucose (UA) 08/21/18 12:43 WBC RDW Absolute Neutrophils Absolute Monocytes Potassium BUN Glucose Hemoglobin A1c % Calcium Alkaline Phosphatase Urine Glucose (UA) >=500 H Discharge - Discharge Clinical Impression: Type 2 diabetes mellitus Condition: Stable Disposition: HOME, SELF-CARE Instructions: Diabetes (OM) Additional Instructions: Stay well-hydrated. Take metformin as directed. Follow-up with your family care clinic in 1-2 weeks. Return to the emergency department with worsening or new concerning symptoms. Referrals: SHAYY HEADLEY MD [ACTIVE STAFF] - Follow up as needed
--- NOTE | 2018-08-21 19:16 | EKG REPORT ---
SEVERITY:- OTHERWISE NORMAL ECG - SINUS TACHYCARDIA : Confirmed by: Marilyn Lawrence MD 21-Aug-2018 19:14:48
[2018-08-21 19:46] VITALS: BP 131/91
== END 2018-08-21 19:46 | disposition home or self-care (01) ==
LOC: ER 10:21
DX: E11.9 Type 2 diabetes mellitus without complications (principal); H53.8 Other visual disturbances; R35.0 Frequency of micturition; R53.81 Other malaise; R53.1 Weakness; R05 Cough; J02.9 Acute pharyngitis, unspecified; R00.0 Tachycardia, unspecified; I10 Essential (primary) hypertension; F17.200 Nicotine dependence, unspecified, uncomplicated; Z83.3 Family history of diabetes mellitus
CPT/HCPCS: 93005; 94640; 99284; 96360; 96361; 36415; 82962; 85025; 81025; 80053; 81001; 83036; 82803; 71046; 93010; J1815; J7030; J7620

== ENCOUNTER 2018-08-28 17:54 | Inpatient (IN) | payer SELFPAY ==
[2018-08-28] MEDS ORDERED: NORMAL SALINE 1000 ML 1,000 ML IV ONE ×4 (19:01→20:38)
[2018-08-28] MEDS ORDERED: INSULIN REG, HUMAN 100 UNIT/ML 3 ML VIAL (PYX) IV ONE (19:03)
[2018-08-28] MEDS ORDERED: ONDANSETRON HCL INJ/PF 4 MG/2 ML SDV IV ONE (19:03)
--- NOTE | 2018-08-28 19:03 | ER Document Report ---
ED Medical Screen (RME) - General Chief Complaint: High Blood Sugar Stated Complaint: BLOOD SUGAR ISSUE Time Seen by Provider: 08/28/18 19:01 TRAVEL OUTSIDE OF THE [place] IN LAST 30 DAYS: No - HPI Notes: 08/28/18 19:02 Patient is here because her blood sugars. He was newly diagnosed with diabetes. Review of system is positive for nausea. Physical exam shows morbid obesity otherwise unremarkable. - Related Data Allergies/Adverse Reactions: No Known Allergies Allergy (Verified 08/28/18 17:58) Past Medical History - Past Medical History Cardiac Medical History: Reports: Hx Hypercholesterolemia, Hx Hypertension Renal/ Medical History: Denies: Hx Peritoneal Dialysis Musculoskeltal Medical History: Reports Hx Arthritis, Reports Hx Musculoskeletal Deformity Past Surgical History: Reports: Hx Tubal Ligation - Immunizations Hx Diphtheria, Pertussis, Tetanus Vaccination: Yes Physical Exam - Vital signs Vitals: Temp Pulse Resp BP Pulse Ox 98.8 F 121 H 18 126/82 H 96 08/28/18 18:25 08/28/18 18:25 08/28/18 18:25 08/28/18 18:25 08/28/18 18:25 Course - Vital Signs Vital signs: Temp Pulse Resp BP Pulse Ox 98.8 F 121 H 18 126/82 H 96 08/28/18 18:25 08/28/18 18:25 08/28/18 18:25 08/28/18 18:25 08/28/18 18:25
[2018-08-28 19:18] LABS: ABSOLUTE BASOPHILS # (AUTO) 0.1 10^3/uL (0.0-0.2); ABSOLUTE LYMPHOCYTES (AUTO) 1.4 10^3/uL (0.5-4.7); ABSOLUTE MONOCYTES (AUTO) 1.6 10^3/uL (0.1-1.4); ABSOLUTE NEUT (AUTO) 15.5 10^3/uL (1.7-8.2); BASOPHILS % (AUTO) 0.7 % (0-2); HEMATOCRIT 53.4 % (36.0-47.0); HEMOGLOBIN 17.3 g/dL (12.0-15.5); LYMPHOCYTES % (AUTO) 7.6 % (13-45); MEAN CORPUSCULAR HEMOGLOBIN 29.1 pg (27.0-33.4); MEAN CORPUSCULAR HGB CONC 32.5 g/dL (32.0-36.0); MONOCYTES % (AUTO) 8.6 % (3-13); PLATELET COUNT 181 10^3/uL (150-450); RED BLOOD COUNT 5.96 10^6/uL (3.72-5.28); RED CELL DISTRIBUTION WIDTH 16.6 % (11.5-14.0); SEGMENTED NEUTROPHILS % (AUTO) 83.1 % (42-78); TOTAL CELLS COUNTED % (AUTO) 100 %; WHITE BLOOD COUNT 18.6 10^3/uL (4.0-10.5)
[2018-08-28 19:20] LABS: VENOUS BLOOD BASE EXCESS -2.1 mmol/L; VENOUS BLOOD HCO3 23.9 mmol/L (20-32); VENOUS BLOOD PH 7.34 (7.30-7.42)
[2018-08-28 19:39] LABS: ALANINE AMINOTRANSFERASE 27 U/L (9-52); ALBUMIN 4.6 g/dL (3.5-5.0); ALKALINE PHOSPHATASE 222 U/L (38-126); ASPARTATE AMINO TRANSFERASE 20 U/L (14-36); BILIRUBIN,DIRECT 0.5 mg/dL (0.0-0.4); BILIRUBIN,TOTAL 0.8 mg/dL (0.2-1.3); BLOOD UREA NITROGEN 78 mg/dL (7-20); CALCIUM 10.8 mg/dL (8.4-10.2); POTASSIUM 5.7 mmol/L (3.6-5.0); TOTAL PROTEIN 8.6 g/dL (6.3-8.2)
[2018-08-28 19:49] LABS: CHLORIDE 103 mmol/L (98-107)
[2018-08-28 19:50] LABS: CARBON DIOXIDE 21 mmol/L (22-30); MEAN CORPUSCULAR VOLUME 90 fl (80-97); SODIUM 146.3 mmol/L (137-145)
[2018-08-28 19:52] LABS: GLUCOSE 1088 mg/dL (75-110)
--- NOTE | 2018-08-28 20:13 | ER Document Report ---
ED Blood Sugar Problem - General Chief Complaint: High Blood Sugar Stated Complaint: BLOOD SUGAR ISSUE Time Seen by Provider: 08/28/18 20:13 Mode of Arrival: Ambulatory Information source: Patient, Relative Cannot obtain history due to: Altered mental status Notes: HISTORY OF PRESENT ILLNESS: Patient is a 37-year-old morbidly obese female with a past medical history of new onset diabetes who presents with weakness with cough and elevated blood sugars. Patient and her sister at bedside report she was evaluated in the emergency department 1 week ago for cough and diagnosed with bronchitis, was discharged home with antibiotics and "cough medicine." Location: Global Onset: Today Alleviation: None Provocation: None Quality: Weakness Radiation: None Severity: Severe Timing: Constant History of abdominal surgery: None Associated symptoms: Positive for fevers but no chills, positive for cough but no shortness of breath Last bowel movement: Today and normal Last menstrual period: "I do not remember" REVIEW OF SYSTEMS: CONSTITUTIONAL : Positive for fevers but no chills or sweats. Positive for recent treatment for "bronchitis." EENT: Denies eye, ear, throat, or mouth pain or symptoms. Denies nasal or sinus congestion. CARDIOVASCULAR: Denies chest pain. Denies swelling of the legs. RESPIRATORY: Positive for cough and congestion. Denies shortness of breath or difficulty breathing. Denies wheezing. GASTROINTESTINAL: Denies abdominal pain. Denies nausea, vomiting, or diarrhea. Denies constipation. GENITOURINARY: Denies difficulty urinating, painful urination, burning, frequency, or blood in urine. FEMALE GENITOURINARY: Denies vaginal bleeding, abnormal or irregular periods. MUSCULOSKELETAL: Denies neck or back pain or joint pain or swelling. SKIN: Denies rash or skin lesions. HEMATOLOGIC : Denies easy bruising or bleeding. LYMPHATIC: Denies swollen, enlarged glands. NEUROLOGICAL: Denies altered mental status or loss of consciousness. Denies headache. Denies weakness or paralysis or loss of use of either side. Denies problems with gait or speech. Denies sensory or motor loss. PSYCHIATRIC: Denies anxiety or stress or depression. All other systems reviewed and negative. PHYSICAL EXAMINATION: GENERAL: Weak and tired-appearing, well-nourished and in moderate acute distress. HEAD: Atraumatic, normocephalic. No scalp deformity, depression, or crepitance. EYES: Pupils are 3 mm and equal/round/reactive to light, extraocular movements intact, sclera anicteric, conjunctiva are normal. ENT: Nares patent bilaterally, oropharynx. Moist mucous membranes. No tonsil hypertrophy. NECK: Normal range of motion, supple without lymphadenopathy. LUNGS: Breath sounds present, equal, and clear to auscultation bilaterally. No wheezes, rales, or rhonchi. HEART: Increased rate, normal rhythm rhythm without murmurs, rubs, or gallops. 2+ peripheral pulses. Normal capillary refill. ABDOMEN: Soft, nontender, nondistended. Normoactive bowel sounds. No guarding, no rebound. No masses appreciated. BACK: Normal contour, no midline tenderness. Rectal exam deferred. GENITAL/PELVIC: Deferred. EXTREMITIES: Normal range of motion, no pitting or edema. No cyanosis. NEUROLOGICAL: No focal neurological deficits. Moves all extremities spontaneously and on command. PSYCH: Normal mood, normal affect. No suicidal thoughts/ideations. No homocidal thoughts/ideations. No hallucinations. SKIN: Warm, dry, normal turgor, no rashes or lesions noted. ASSESSMENT AND PLAN: This patient is a 37-year-old female who presents with symptomatic hypoglycemia that could represent acute diabetic ketoacidosis. 1. Will obtain labs, urine, lactic acid, VBG, start IV fluids with insulin, and obtain chest x-ray with EKG. 2. Will likely admit to the hospital. TRAVEL OUTSIDE OF THE [place] IN LAST 30 DAYS: No - Related Data Allergies/Adverse Reactions: No Known Allergies Allergy (Verified 08/28/18 17:58) Past Medical History - General Information source: Patient, Relative Cannot obtain history due to: Altered mental status - Social History Smoking Status: Unknown if Ever Smoked Chew tobacco use (# tins/day): No Frequency of alcohol use: None Drug Abuse: None Lives with: Family Family History: DM Patient has suicidal ideation: No Patient has homicidal ideation: No - Past Medical History Cardiac Medical History: Reports: Hx Hypercholesterolemia, Hx Hypertension Pulmonary Medical History: Reports: None EENT Medical History: Reports: None Neurological Medical History: Reports: None Endocrine Medical History: Reports: None Renal/ Medical History: Reports: None. Denies: Hx Peritoneal Dialysis Malignancy Medical History: Reports: None GI Medical History: Reports: None Musculoskeletal Medical History: Reports Hx Arthritis, Reports Hx Musculoskeletal Deformity Skin Medical History: Reports None Psychiatric Medical History: Reports: None Traumatic Medical History: Reports: None Infectious Medical History: Reports: None Past Surgical History: Reports: Hx Tubal Ligation - Immunizations Hx Diphtheria, Pertussis, Tetanus Vaccination: Yes Physical Exam - Vital signs Vitals: Temp Pulse Resp BP Pulse Ox 98.8 F 121 H 18 126/82 H 96 08/28/18 18:25 08/28/18 18:25 08/28/18 18:25 08/28/18 18:25 08/28/18 18:25 Course - Re-evaluation Re-evalutation: 08/29/18 00:27 Patient has clear evidence of DKA. She has been given fluids with insulin and will be placed on an insulin drip. She will be admitted to the ICU. - Vital Signs Vital signs: Temp Pulse Resp BP Pulse Ox 97.3 F 121 H 21 H 141/78 H 95 08/28/18 21:00 08/28/18 18:25 08/29/18 00:01 08/29/18 00:01 08/29/18 00:01 - Laboratory Result Diagrams: 08/29/18 02:30 08/29/18 02:30 Laboratory results interpreted by me: 08/28/18 08/28/18 08/28/18 19:09 19:09 20:06 WBC 18.6 H RBC 5.96 H Hgb 17.3 H Hct 53.4 H RDW 16.6 H Seg Neutrophils % 83.1 H Lymphocytes % 7.6 L Absolute Neutrophils 15.5 H Absolute Monocytes 1.6 H Sodium 146.3 H Potassium 5.7 H Carbon Dioxide 21 L Anion Gap 22 H BUN 78 H Est GFR (Non-Af Amer) 50 L Glucose 1088 H* Lactic Acid Calcium 10.8 H Direct Bilirubin 0.5 H Alkaline Phosphatase 222 H Total Protein 8.6 H Urine Glucose (UA) >=500 H Urine Ketones 20 H Urine Blood LARGE H Ur Leukocyte Esterase MODERATE H 08/28/18 08/28/18 21:08 23:46 WBC RBC Hgb Hct RDW Seg Neutrophils % Lymphocytes % Absolute Neutrophils Absolute Monocytes Sodium Potassium Carbon Dioxide Anion Gap BUN Est GFR (Non-Af Amer) Glucose 674 H* Lactic Acid 2.3 H Calcium Direct Bilirubin Alkaline Phosphatase Total Protein Urine Glucose (UA) Urine Ketones Urine Blood Ur Leukocyte Esterase - Diagnostic Test Radiology reviewed: Image reviewed, Reports reviewed - EKG Interpretation by Me EKG shows normal: Sinus rhythm Rate: Normal Rhythm: NSR [place]/QRS: No: Right axis deviation, Left axis deviation, RBBB, LBBB, IVCD, LAHB/LAFB, LPHB/LPFB, Bifasicular block Voltage: No: Increased voltage, Consistant with LVH, Decreased voltage, Throughout, Limb leads P Waves: No: HORACE, LAE, Absent, AV Dissociation, Other Heart block present: No: 1st Degree, Mobitz 1, Mobitz 2, CHB (3rd degree block) When compared to previous EKG there are: Previous EKG unavailable - Consults Dr. Padilla Time consulted: 23:30 - will admit Consulted provider: will come to ER Critical Care Note - Critical Care Note Total time excluding time spent on procedures (mins): 90 Comments: Critical care time spent obtaining history from patient or surrogate, discussions with consultants, development of treatment plan with patient or surrogate, evaluation of patient's response to treatment, examination of patient, ordering and performing treatments and interventions, ordering and review of laboratory studies, re-evaluation of patient's condition, ordering and review of radiographic studies and review of old charts. Discharge - Discharge Clinical Impression: Dehydration Diabetic ketoacidosis Qualifiers: Diabetes mellitus type: type 2 Diabetes mellitus complication detail: without coma Qualified Code(s): E11.10 - Type 2 diabetes mellitus with ketoacidosis without coma Condition: Stable Disposition: ADMITTED INPATIENT Admitting Provider: Hospitalist Unit Admitted: ICU
[2018-08-28 20:19] LABS: ANION GAP 22 (5-19)
[2018-08-28 20:34] LABS: APPEARANCE,URINE SLIGHTLY-CLOUDY; BILIRUBIN,URINE NEGATIVE (NEGATIVE); COLOR,URINE YELLOW; GLUCOSE, URINE >=500 mg/dL (NEGATIVE); KETONES,URINE 20 mg/dL (NEGATIVE); LEUKOCYTE ESTERASE,URINE MODERATE (NEGATIVE); NITRITE,URINE NEGATIVE (NEGATIVE); PROTEIN,URINE NEGATIVE (NEGATIVE); URINE SPECIFIC GRAVITY 1.024; UROBILINOGEN,URINE NEGATIVE mg/dL (<2.0)
[2018-08-28] MEDS ORDERED: NORMAL SALINE 100 ML with INSULIN REGULAR, HUMAN 100 UNIT IV PRN ×2 (20:39)
[2018-08-28] MEDS ORDERED: DEXTROSE 40% GEL 15 GM TUBE PO PRN ×2 (20:39)
[2018-08-28] MEDS ORDERED: DEXTROSE 50%-WATER 25 GM/50 ML DISP.SYRIN IV PRN ×2 (20:39)
[2018-08-28] MEDS ORDERED: GLUCAGON,HUMAN RECOMB 1 MG INJ IM PRN (20:39)
--- NOTE | 2018-08-28 21:12 | RADIOLOGY REPORT (SQ) ---
EXAM DESCRIPTION: XR CHEST 1 VIEW COMPLETED DATE/TME: 08/28/2018 20:43 CLINICAL HISTORY: 37 years, Female, Cough Compared to 01/15/2017. FINDINGS: The heart is not enlarged. No consolidation or pleural effusion. No pulmonary edema or pneumothorax. IMPRESSION: No acute disease.
[2018-08-28] MEDS ORDERED: INSULIN REG, HUMAN 100 UNIT/ML 3 ML VIAL (PYX) ONE (23:21)
[2018-08-29] MEDS ORDERED: DEXTROSE 40% GEL 15 GM TUBE PO PRN ×4 (02:04)
[2018-08-29] MEDS ORDERED: MAG HYDROX/AL HYDROX/SIMETH SUSP 30 ML UDCUP PO PRN (02:04)
[2018-08-29] MEDS ORDERED: GLUCAGON,HUMAN RECOMB 1 MG INJ IM PRN (02:04)
[2018-08-29] MEDS ORDERED: GLUCAGON,HUMAN RECOMB 1 MG INJ SUBCUT PRN (02:04)
[2018-08-29] MEDS ORDERED: DEXTROSE 50%-WATER 25 GM/50 ML DISP.SYRIN IV PRN ×4 (02:04)
[2018-08-29] MEDS ORDERED: ACETAMINOPHEN 325 MG TABLET PO PRN (02:04)
[2018-08-29] MEDS ORDERED: POTASSI CL 20 MEQ/1/2NS 1L 20 MEQ/1,000 ML RTUINJ IV PRN (02:06)
[2018-08-29 02:35] LABS: URINE AMPHETAMINES SCREEN NEGATIVE; URINE BARBITURATES SCREEN NEGATIVE; URINE BENZODIAZEPINES SCREEN NEGATIVE; URINE COCAINE SCREEN NEGATIVE; URINE MARIJUANA (THC) SCREEN UNCONFIRMED POSITIVE; URINE METHADONE SCREEN NEGATIVE; URINE PHENCYCLIDINE SCREEN NEGATIVE
[2018-08-29 02:43] LABS: ABSOLUTE BASOPHILS # (AUTO) 0.2 10^3/uL (0.0-0.2); ABSOLUTE LYMPHOCYTES (AUTO) 2.7 10^3/uL (0.5-4.7); ABSOLUTE MONOCYTES (AUTO) 1.8 10^3/uL (0.1-1.4); ABSOLUTE NEUT (AUTO) 13.3 10^3/uL (1.7-8.2); BASOPHILS % (AUTO) 0.9 % (0-2); HEMATOCRIT 47.2 % (36.0-47.0); HEMOGLOBIN 15.6 g/dL (12.0-15.5); LYMPHOCYTES % (AUTO) 14.9 % (13-45); MEAN CORPUSCULAR HEMOGLOBIN 28.7 pg (27.0-33.4); MEAN CORPUSCULAR HGB CONC 33.1 g/dL (32.0-36.0); MEAN CORPUSCULAR VOLUME 87 fl (80-97); PLATELET COUNT 121 10^3/uL (150-450); RED BLOOD COUNT 5.44 10^6/uL (3.72-5.28); RED CELL DISTRIBUTION WIDTH 15.9 % (11.5-14.0); SEGMENTED NEUTROPHILS % (AUTO) 74.2 % (42-78); TOTAL CELLS COUNTED % (AUTO) 100 %; WHITE BLOOD COUNT 17.9 10^3/uL (4.0-10.5)
[2018-08-29 03:27] LABS: ANION GAP 11 (5-19); BLOOD UREA NITROGEN 62 mg/dL (7-20); CALCIUM 9.7 mg/dL (8.4-10.2); CARBON DIOXIDE 28 mmol/L (22-30); CHLORIDE 120 mmol/L (98-107); SODIUM 158.5 mmol/L (137-145)
[2018-08-29 03:37] LABS: POTASSIUM 3.7 mmol/L (3.6-5.0)
[2018-08-29 03:38] LABS: GLUCOSE 459 mg/dL (75-110)
[2018-08-29] MEDS ORDERED: DESMOPRESSIN ACETATE INJ 4 MCG/1 ML AMPULE ONE (04:09)
[2018-08-29] MEDS ORDERED: POTASSI CL 20 MEQ/D5-1/2NS 1L 1,000 ML IV ONE (04:15)
[2018-08-29] MEDS ORDERED: DESMOPRESSIN ACETATE INJ 4 MCG/1 ML AMPULE IV SCH ×2 (04:32→10:00)
[2018-08-29] MEDS ORDERED: DESMOPRESSIN ACETATE INJ 4 MCG/1 ML AMPULE IV ONE (04:45)
[2018-08-29] MEDS ORDERED: DESMOPRESSIN NASAL SPRAY 100 MCG/1 ML 5 ML NASL ONE (05:00)
[2018-08-29] MEDS: NORMAL SALINE 100 ML with INSULIN REGULAR, HUMAN 100 UNIT IV PRN ×6 (05:00→17:35)
[2018-08-29 05:04] LABS: URINE POTASSIUM 27.2 mmol/L (17-145); URINE PROTEIN 31.9 mg/dL (<12)
[2018-08-29] MEDS ORDERED: CEFTRIAXONE SODIUM 1,500 MG in DEXTROSE 5%-WATER 100 ML IV SCH ×2 (06:00→10:00)
[2018-08-29] MEDS: HEPARIN SOD (PORCINE) 5,000 UNIT/ML 1 ML SYRINGE SUBCUT SCH ×3 (06:36→21:16)
[2018-08-29 07:28] LABS: ANION GAP 5 (5-19); BLOOD UREA NITROGEN 52 mg/dL (7-20); CALCIUM 9.4 mg/dL (8.4-10.2); CARBON DIOXIDE 31 mmol/L (22-30); CHLORIDE 126 mmol/L (98-107); GLUCOSE 253 mg/dL (75-110); POTASSIUM 4.3 mmol/L (3.6-5.0)
--- NOTE | 2018-08-29 08:07 | EKG REPORT ---
SEVERITY:- OTHERWISE NORMAL ECG - SINUS TACHYCARDIA : Confirmed by: Serafin Parks MD 29-Aug-2018 08:06:28
[2018-08-29] MEDS: DOCUSATE SODIUM 100 MG CAPSULE PO SCH ×2 (09:41→17:35)
[2018-08-29] MEDS: CEFTRIAXONE 2 GM/D5W RTU 2 GM/50 ML RTUPB IV SCH (09:50)
--- NOTE | 2018-08-29 09:57 | PDOC H&P ---
History of Present Illness Admission Date/PCP: 08/29/18 00:19 Patient complains of: Nausea, abdominal pain and hyperglycemia History of Present Illness: MARK RASHID is a 37 year old female newly diagnosed with diabetes unable to tolerate metformin she developed polyuria polydipsia and uncontrolled hyperglycemia prompting evaluation in the emergency room where she is found to have hyperosmolar state with glucose greater than 1000 and lethargy. She start ed on insulin, normal saline and referred to the hospitalist for admission. Patient is unable to provide further history. Past Medical History Cardiac Medical History: Reports: Hyperlipidema, Hypertension Pulmonary Medical History: Reports: None EENT Medical History: Reports: None Neurological Medical History: Reports: None Endocrine Medical History: Reports: None Renal/ Medical History: Reports: None Malignancy Medical History: Reports: None GI Medical History: Reports: None Musculoskeltal Medical History: Reports: Arthritis Skin Medical History: Reports: None Psychiatric Medical History: Reports: None Traumatic Medical History: Reports: None Infectious Medical History: Reports: None Past Surgical History Past Surgical History: Reports: Tubal Ligation Social History Information Source: [facility] Records Lives with: Family Smoking Status: Unknown if Ever Smoked Frequency of Alcohol Use: None Drugs: None - , Which is getting better fluid balance red and enzymes extubated she is so linear would like 3 weeks - Advance Directive Resuscitation Status: Full Code Family History Family History: DM Parental Family History Reviewed: Yes Children Family History Reviewed: Yes Sibling(s) Family History Reviewed.: Yes Medication/Allergy Home Medications: Metformin HCl [Glucophage 500 mg Tablet] 500 mg PO QHS 08/29/18 Allergies/Adverse Reactions: No Known Allergies Allergy (Verified 08/28/18 17:58) Review of Systems ROS unobtainable: Due to mental status Physical Exam Vital Signs: Temp Pulse Resp BP Pulse Ox 97.3 F 121 H 21 H 141/78 H 95 08/28/18 21:00 08/28/18 18:25 08/29/18 00:01 08/29/18 00:01 08/29/18 00:01 Intake & Output 08/27/18 08/28/18 08/29/18 11:59 11:59 11:59 Intake Total 4000 Balance 4000 Weight 145.5 kg General appearance: PRESENT: cooperative, disheveled, obese, severe distress Head exam: PRESENT: atraumatic, normocephalic Eye exam: PRESENT: conjunctiva pink, EOMI, PERRLA. ABSENT: scleral icterus Ear exam: PRESENT: normal external ear exam Mouth exam: PRESENT: dry mucosa, neck supple. ABSENT: laceration, moist Neck exam: ABSENT: carotid bruit, JVD, lymphadenopathy, thyromegaly Respiratory exam: PRESENT: clear to auscultation [place], tachypnea. ABSENT: rales, rhonchi, wheezes Cardiovascular exam: PRESENT: RRR. ABSENT: diastolic murmur, rubs, systolic murmur Pulses: PRESENT: normal dorsalis pedis pul Vascular exam: PRESENT: normal capillary refill GI/Abdominal exam: PRESENT: normal bowel sounds, soft. ABSENT: distended, guarding, mass, organolmegaly, rebound, tenderness Rectal exam: PRESENT: deferred Extremities exam: PRESENT: full ROM. ABSENT: calf tenderness, clubbing, pedal edema Neurological exam: PRESENT: alert, altered, awake, oriented to person, oriented to place, oriented to situation, CN II-XII grossly intact Psychiatric exam: PRESENT: appropriate affect, normal mood. ABSENT: homicidal ideation, suicidal ideation Skin exam: PRESENT: dry, intact, warm. ABSENT: cyanosis, rash Results Laboratory Results: 08/29/18 02:30 08/28/18 23:46 08/28/18 08/28/18 08/28/18 19:09 19:09 19:09 WBC 18.6 H RBC 5.96 H Hgb 17.3 H Hct 53.4 H MCV 90 D MCH 29.1 MCHC 32.5 RDW 16.6 H Plt Count 181 Seg Neutrophils % 83.1 H Lymphocytes % 7.6 L Monocytes % 8.6 Eosinophils % 0.0 Basophils % 0.7 Absolute Neutrophils 15.5 H Absolute Lymphocytes 1.4 Absolute Monocytes 1.6 H Absolute Eosinophils 0.0 Absolute Basophils 0.1 VBG pH 7.34 VBG pCO2 45.0 VBG HCO3 23.9 VBG Base Excess -2.1 Sodium 146.3 H Potassium 5.7 H Chloride 103 Carbon Dioxide 21 L Anion Gap 22 H BUN 78 H Creatinine 1.21 Est GFR ( Amer) > 60 Est GFR (Non-Af Amer) 50 L Glucose 1088 H* Lactic Acid Calcium 10.8 H Total Bilirubin 0.8 AST 20 ALT 27 Alkaline Phosphatase 222 H Total Protein 8.6 H Albumin 4.6 Urine Color Urine Appearance Urine pH Ur Specific [place] Urine Protein Urine Glucose (UA) Urine Ketones Urine Blood Urine Nitrite Ur Leukocyte Esterase Urine WBC (Auto) Urine RBC (Auto) 08/28/18 08/28/18 08/28/18 20:06 21:08 23:46 WBC RBC Hgb Hct MCV MCH MCHC RDW Plt Count Seg Neutrophils % Lymphocytes % Monocytes % Eosinophils % Basophils % Absolute Neutrophils Absolute Lymphocytes Absolute Monocytes Absolute Eosinophils Absolute Basophils VBG pH VBG pCO2 VBG HCO3 VBG Base Excess Sodium Potassium Chloride Carbon Dioxide Anion Gap BUN Creatinine Est GFR ( Amer) Est GFR (Non-Af Amer) Glucose 674 H* Lactic Acid 2.3 H Calcium Total Bilirubin AST ALT Alkaline Phosphatase Total Protein Albumin Urine Color YELLOW Urine Appearance SLIGHTLY-CLOUDY Urine pH 5.0 Ur Specific [place] 1.024 Urine Protein NEGATIVE Urine Glucose (UA) >=500 H Urine Ketones 20 H Urine Blood LARGE H Urine Nitrite NEGATIVE Ur Leukocyte Esterase MODERATE H Urine WBC (Auto) 28 Urine RBC (Auto) 129 08/29/18 02:30 WBC 17.9 H RBC 5.44 H Hgb 15.6 H Hct 47.2 H MCV 87 MCH 28.7 MCHC 33.1 RDW 15.9 H Plt Count 121 L Seg Neutrophils % 74.2 Lymphocytes % 14.9 Monocytes % 10.0 Eosinophils % 0.0 Basophils % 0.9 Absolute Neutrophils 13.3 H Absolute Lymphocytes 2.7 Absolute Monocytes 1.8 H Absolute Eosinophils 0.0 Absolute Basophils 0.2 VBG pH VBG pCO2 VBG HCO3 VBG Base Excess Sodium Potassium Chloride Carbon Dioxide Anion Gap BUN Creatinine Est GFR ( Amer) Est GFR (Non-Af Amer) Glucose Lactic Acid Calcium Total Bilirubin AST ALT Alkaline Phosphatase Total Protein Albumin Urine Color Urine Appearance Urine pH Ur Specific [place] Urine Protein Urine Glucose (UA) Urine Ketones Urine Blood Urine Nitrite Ur Leukocyte Esterase Urine WBC (Auto) Urine RBC (Auto) Impressions: Chest X-Ray 08/28/18 20:43 IMPRESSION: No acute disease. Assessment & Plan - Diagnosis (1) Hyperosmolality due to uncontrolled type 1 diabetes mellitus Is this a current diagnosis for this admission?: Yes Plan: IV insulin, saline challenge, follow-up serial chemistries (2) Encephalopathy acute Is this a current diagnosis for this admission?: Yes Plan: Secondary to #1, supportive care (3) Diabetic ketoacidosis Qualifiers: Diabetes mellitus type: type 2 Diabetes mellitus complication detail: without coma Qualified Code(s): E11.10 - Type 2 diabetes mellitus with ketoacidosis without coma Is this a current diagnosis for this admission?: Yes Plan: Diabetic ketoacidosis patient has had some degree of polyuria polydipsia with nausea and uncontrolled hyperglycemia with supporting labs. Patient will receive IV fluids IV insulin serial chemistries every 6 hours for evaluation for electrolyte repletion. Continued evaluation for underlying cause if not found Patient will require diabetic education and consideration of mental health evaluation. (4) Hyperkalemia Is this a current diagnosis for this admission?: Yes Plan: Secondary to #1, follow-up serial chemistry (5) Dehydration Is this a current diagnosis for this admission?: Yes Plan: Secondary to #1, IV fluid challenge. Follow-up chemistry (6) Diabetes insipidus Is this a current diagnosis for this admission?: Yes Plan: unable to drink, despite aggressive hydration she is diuresed 4 L and 6 hours. New hypernatremia. DDAVP initiated. Follow-up nephrology consult. - Time Time Spent: 50 to 70 Minutes
[2018-08-29] MEDS: POTASSI CL 20 MEQ/D5-1/2NS 1L 1,000 ML IV PRN ×2 (10:14→18:40)
[2018-08-29 12:00] LABS: ANION GAP 5 (5-19); BLOOD UREA NITROGEN 48 mg/dL (7-20); CALCIUM 9.6 mg/dL (8.4-10.2); CARBON DIOXIDE 30 mmol/L (22-30); CHLORIDE 125 mmol/L (98-107); GLUCOSE 136 mg/dL (75-110); POTASSIUM 4.9 mmol/L (3.6-5.0); SODIUM 160.3 mmol/L (137-145)
[2018-08-29] MEDS: IPRATROPIUM/ALBUTEROL 0.5-2.5 MG/3 ML AMPUL NEB PRN ×2 (14:42→22:26)
[2018-08-29] MEDS ORDERED: DESMOPRESSIN ACETATE INJ 4 MCG/1 ML AMPULE SUBCUT SCH (22:00)
--- NOTE | 2018-08-29 22:16 | RADIOLOGY REPORT (SQ) ---
EXAM DESCRIPTION: CT HEAD WITHOUT IV CONTRAST COMPLETED DATE/TME: 08/29/2018 00:00 CLINICAL HISTORY: 37 years, Female, ams hypernatremia This exam was performed according to our departmental dose-optimization program which includes automated exposure control, adjustment of the mA and/or kVp according to patient size and/or use of iterative reconstruction technique where applicable. FINDINGS: No acute intracranial hemorrhage, mass effect or midline shift. No extra-axial fluid collections. Ventricles and subarachnoid spaces are preserved. Gonzalez-white matter differentiation is preserved. Visualized paranasal sinuses and the mastoid air cells are clear. The skull is intact. IMPRESSION: No acute intracranial hemorrhage.
[2018-08-29 22:48] LABS: ANION GAP 6 (5-19); BLOOD UREA NITROGEN 33 mg/dL (7-20); CALCIUM 9.4 mg/dL (8.4-10.2); CARBON DIOXIDE 30 mmol/L (22-30); CHLORIDE 126 mmol/L (98-107); GLUCOSE 122 mg/dL (75-110); SODIUM 162.1 mmol/L (137-145)
[2018-08-29 22:52] LABS: POTASSIUM 3.9 mmol/L (3.6-5.0)
[2018-08-30] MEDS: POTASSI CL 20 MEQ/D5-1/2NS 1L 1,000 ML IV PRN ×2 (01:57→06:50)
[2018-08-30 03:00] LABS: BLOOD UREA NITROGEN 28 mg/dL (7-20); CALCIUM 9.3 mg/dL (8.4-10.2); GLUCOSE 114 mg/dL (75-110); POTASSIUM 3.6 mmol/L (3.6-5.0)
[2018-08-30 03:05] LABS: CARBON DIOXIDE 30 mmol/L (22-30); CHLORIDE 127 mmol/L (98-107); SODIUM 161.3 mmol/L (137-145)
[2018-08-30 03:10] LABS: ANION GAP 4 (5-19)
[2018-08-30] MEDS: NORMAL SALINE 100 ML with INSULIN REGULAR, HUMAN 100 UNIT IV PRN ×2 (04:49)
[2018-08-30] MEDS: HEPARIN SOD (PORCINE) 5,000 UNIT/ML 1 ML SYRINGE SUBCUT SCH ×3 (05:10→22:05)
[2018-08-30 06:32] LABS: ABSOLUTE BASOPHILS # (AUTO) 0.1 10^3/uL (0.0-0.2); ABSOLUTE EOSINOPHILS # (AUTO) 0.3 10^3/uL (0.0-0.6); ABSOLUTE LYMPHOCYTES (AUTO) 1.9 10^3/uL (0.5-4.7); ABSOLUTE MONOCYTES (AUTO) 1.6 10^3/uL (0.1-1.4); ABSOLUTE NEUT (AUTO) 9.2 10^3/uL (1.7-8.2); BASOPHILS % (AUTO) 0.9 % (0-2); HEMATOCRIT 45.4 % (36.0-47.0); HEMOGLOBIN 15.1 g/dL (12.0-15.5); LYMPHOCYTES % (AUTO) 14.6 % (13-45); MEAN CORPUSCULAR HEMOGLOBIN 28.8 pg (27.0-33.4); MEAN CORPUSCULAR HGB CONC 33.3 g/dL (32.0-36.0); MEAN CORPUSCULAR VOLUME 87 fl (80-97); MONOCYTES % (AUTO) 12.5 % (3-13); PLATELET COUNT 112 10^3/uL (150-450); RED BLOOD COUNT 5.24 10^6/uL (3.72-5.28); RED CELL DISTRIBUTION WIDTH 15.9 % (11.5-14.0); TOTAL CELLS COUNTED % (AUTO) 100 %; WHITE BLOOD COUNT 13.1 10^3/uL (4.0-10.5)
[2018-08-30 08:46] LABS: ANION GAP 5 (5-19); BLOOD UREA NITROGEN 23 mg/dL (7-20); CALCIUM 9.1 mg/dL (8.4-10.2); CARBON DIOXIDE 29 mmol/L (22-30); CHLORIDE 127 mmol/L (98-107); GLUCOSE 100 mg/dL (75-110); POTASSIUM 4.1 mmol/L (3.6-5.0); SODIUM 161.4 mmol/L (137-145)
[2018-08-30] MEDS ORDERED: DEXTROSE 50%-WATER 25 GM/50 ML DISP.SYRIN IV PRN ×2 (10:35)
[2018-08-30] MEDS ORDERED: GLUCAGON,HUMAN RECOMB 1 MG INJ IM PRN (10:35)
[2018-08-30] MEDS ORDERED: DEXTROSE 40% GEL 15 GM TUBE PO PRN ×2 (10:35)
[2018-08-30] MEDS: CEFTRIAXONE 2 GM/D5W RTU 2 GM/50 ML RTUPB IV SCH (11:00)
[2018-08-30] MEDS: DOCUSATE SODIUM 100 MG CAPSULE PO SCH ×2 (11:00→17:22)
[2018-08-30 11:23] LABS: BLOOD UREA NITROGEN 21 mg/dL (7-20); CALCIUM 8.8 mg/dL (8.4-10.2); GLUCOSE 115 mg/dL (75-110); POTASSIUM 3.8 mmol/L (3.6-5.0)
[2018-08-30 11:29] LABS: ANION GAP 5 (5-19); CARBON DIOXIDE 29 mmol/L (22-30); CHLORIDE 126 mmol/L (98-107); SODIUM 159.6 mmol/L (137-145)
[2018-08-30] MEDS: INSULIN LISPRO 100 UNIT/ML 3 ML VIAL SUBCUT SCH ×3 (12:00→22:21)
[2018-08-30 12:37] LABS: OSMOLALITY,URINE 552 mOsm/kg (300-900)
[2018-08-30 12:53] LABS: URINE SODIUM 39 mmol/L (30-90)
[2018-08-30] MEDS ORDERED: 1/2 NORMAL SALINE 1,000 ML IV PRN (14:51)
--- NOTE | 2018-08-30 18:39 | PDOC PROGRESS REPORT ---
Subjective Progress Note for:: 08/30/18 Subjective:: No adverse events overnight. No new complaints. Vital signs been stable. Urine output is been good. She is hungry and wants to have something to eat. Reason For Visit: DKA HONK AMS Physical Exam Vital Signs: Temp Pulse Resp BP Pulse Ox 98.8 F 95 14 148/79 H 97 08/30/18 12:01 08/30/18 17:54 08/30/18 17:54 08/30/18 12:32 08/30/18 17:54 Intake & Output 08/29/18 08/30/18 08/31/18 06:59 06:59 06:59 Intake Total 4311 4059 74 Output Total 175 2445 525 Balance 4136 1614 -451 Weight 143.8 kg 143.4 kg General appearance: PRESENT: no acute distress, cooperative, disheveled, morbidly obese Respiratory exam: PRESENT: clear to auscultation [place], symmetrical, unlabored. ABSENT: accessory muscle use, prolonged expiratory phas, rales, rhonchi, tachypnea, wheezes Cardiovascular exam: PRESENT: RRR, +S1, +S2 Pulses: PRESENT: normal carotid pulses Vascular exam: PRESENT: normal capillary refill GI/Abdominal exam: PRESENT: normal bowel sounds, soft. ABSENT: distended, guarding, rebound, tenderness Extremities exam: ABSENT: clubbing, pedal edema Musculoskeletal exam: PRESENT: normal inspection. ABSENT: deformity Neurological exam: PRESENT: alert, awake, oriented to person, oriented to place, oriented to time, oriented to situation Psychiatric exam: PRESENT: appropriate affect, normal mood Skin exam: PRESENT: dry, warm Results Laboratory Results: 08/30/18 06:23 08/30/18 10:50 08/29/18 08/29/18 08/30/18 22:17 22:17 02:21 WBC RBC Hgb Hct MCV MCH MCHC RDW Plt Count Seg Neutrophils % Lymphocytes % Monocytes % Eosinophils % Basophils % Absolute Neutrophils Absolute Lymphocytes Absolute Monocytes Absolute Eosinophils Absolute Basophils Sodium 162.1 H 161.3 H Potassium 3.9 D 3.6 Chloride 126 H 127 H Carbon Dioxide 30 30 Anion Gap 6 4 L BUN 33 H 28 H Creatinine 0.88 0.83 Est GFR ( Amer) > 60 > 60 Est GFR (Non-Af Amer) > 60 > 60 Glucose 122 H 114 H Serum Osmolality 346 H Calcium 9.4 9.3 Urine Osmolality 08/30/18 08/30/18 08/30/18 06:23 06:23 08:10 WBC 13.1 H RBC 5.24 Hgb 15.1 Hct 45.4 MCV 87 MCH 28.8 MCHC 33.3 RDW 15.9 H Plt Count 112 L Seg Neutrophils % 70.0 Lymphocytes % 14.6 Monocytes % 12.5 Eosinophils % 2.0 Basophils % 0.9 Absolute Neutrophils 9.2 H Absolute Lymphocytes 1.9 Absolute Monocytes 1.6 H Absolute Eosinophils 0.3 Absolute Basophils 0.1 Sodium Cancelled 161.4 H Potassium Cancelled 4.1 Chloride Cancelled 127 H Carbon Dioxide Cancelled 29 Anion Gap Cancelled 5 BUN Cancelled 23 H Creatinine Cancelled 0.80 Est GFR ( Amer) Cancelled > 60 Est GFR (Non-Af Amer) Cancelled > 60 Glucose Cancelled 100 Serum Osmolality Calcium Cancelled 9.1 Urine Osmolality 08/30/18 08/30/18 08/30/18 10:50 10:50 11:45 WBC RBC Hgb Hct MCV MCH MCHC RDW Plt Count Seg Neutrophils % Lymphocytes % Monocytes % Eosinophils % Basophils % Absolute Neutrophils Absolute Lymphocytes Absolute Monocytes Absolute Eosinophils Absolute Basophils Sodium 159.6 H Potassium 3.8 Chloride 126 H Carbon Dioxide 29 Anion Gap 5 BUN 21 H Creatinine 0.79 Est GFR ( Amer) > 60 Est GFR (Non-Af Amer) > 60 Glucose 115 H Serum Osmolality 340 H Calcium 8.8 Urine Osmolality 552 Impressions: Chest X-Ray 08/28/18 20:43 IMPRESSION: No acute disease. Head CT 08/29/18 00:00 IMPRESSION: No acute intracranial hemorrhage. Assessment & Plan - Diagnosis (1) Diabetic ketoacidosis Qualifiers: Diabetes mellitus type: type 2 Diabetes mellitus complication detail: without coma Qualified Code(s): E11.10 - Type 2 diabetes mellitus with ketoacidosis without coma Is this a current diagnosis for this admission?: Yes Plan: Resolved. We put her back on a sliding scale. She may need basal insulin as well. (2) Hyperosmolality and hypernatremia Is this a current diagnosis for this admission?: Yes Plan: Still hyponatremic. Nephrology has been consulted. They want to monitor her for now and observe the trend in her sodium to see if further investigation is needed. - Time Time Spent with patient: 25-34 minutes
[2018-08-30 22:13] LABS: ANION GAP 9 (5-19); BLOOD UREA NITROGEN 22 mg/dL (7-20); CALCIUM 8.7 mg/dL (8.4-10.2); CARBON DIOXIDE 25 mmol/L (22-30); CHLORIDE 114 mmol/L (98-107); POTASSIUM 4.6 mmol/L (3.6-5.0); SODIUM 147.6 mmol/L (137-145)
[2018-08-30 22:22] LABS: GLUCOSE 497 mg/dL (75-110)
[2018-08-30] MEDS ORDERED: INSULIN REG, HUMAN 100 UNIT/ML 3 ML VIAL (PYX) IV ONE (22:45)
--- NOTE | 2018-08-30 23:07 | PDOC CONSULTATION ---
Consultation Consult Date: 08/30/18 Attending physician:: CINDY CURTIS Consult reason:: I was asked by Dr. Curtis to see the patient because of hypernatremia and consideration of diabetes insipidus. History of Present Illness Admission Date/PCP: 08/29/18 00:19 History of Present Illness: MARK RASHID is a 37 year old female with history of hyperlipidemia and arthritis and reportedly newly diagnosed diabetes mellitus type 2 couple weeks ago who presented in the emergency room on the night of 08/28 with weakness, nausea, polyuria and polydipsia and abdominal pain for about 2 weeks. Patient indicates that about a week ago she went to the emergency room with the same complaints and was diagnosed with diabetes mellitus. She was then started on metformin which she only took for 2 days. 2 weeks ago she was also in the emergency room because of some cough and diagnosed with upper respiratory tract infection and was given Augmentin which she has completed. Patient continues to have increasing thirst so she has been drinking constantly at home. She reports that her throat gets so dry so she has been drinking water, milk and non-sugared juices at home with some soda. She did admits going to the bathroom a lot as well. She said she was not eating so much because she was not hungry though. About 3 days ago patient noted to become weaker and more tired and she could not function. One day prior to admission the patient said she just laid down in bed and subsequently decided to go to the emergency room with her sister. She denies any other medications aside from metformin and Augmentin. She denies any significant neurologic disease nor head trauma. The only [id number] medications that she was taking was Mucinex. She says she has lived of shortness of breath but she attributes that to smoking as well as on and off mild chest pain. She denies having the same issues in the past with polyuria and polydipsia. She denies any kidney problems. She does not follow-up regularly with any primary care physician. In the emergency room the patient's initial workup showed a blood sugar of 1088, positive glucosuria, positive urine ketones with CO2 of 21. Sodium was initially 146.3, BUN of 78 and creatinine of 1.21. Patient was given IV fluid boluses with 2 L of normal saline and another 2 L of half-normal and a D5 half- normal with potassium supplement on the first 24 hours. She was diagnosed with DKA and was started on insulin drip and subsequently admitted to the ICU. I was told as the patient is being given the initial 4 L of fluid the patient was also urinating a whole lot although that was not documented in the Intake and Output balance. When she was in the ICU she was also given a lot of IV fluids and estimated 2445 mL as recorded with an intake of 4059 mL. As the blood sugars gets corrected the patient's serum sodium has increased reflecting the actual true sodium value. Blood work on August 21 likely during 1 of her ER visit showed a sodium of 137.4, chloride of 98 and normal kidney function at that time. Today the last blood draw showed a sodium of 159.6, glucose of 115, BUN of 21 and creatinine of 0.79. Her serum osmolality has gone from initial 382 to 340 now. Her urine osmolality is gone from 564 to 552. Of note the patient was given DDAVP for a total of 2 mcg IV x2 doses in the emergency room. This was discontinued and the patient was transferred to the ICU. A CT scan of the head was negative. Currently the patient is off any IV fluids. She still reports that she feels thirsty and has been drinking water. Patient was placed on n.p.o. when she was in the ICU. She continues to make good urine output but I have yet to see if this is excessive. She still feels that her throat is dry. She continues to feel tired with some blurring of vision which was unchanged from presentation. Her blood sugars have been pretty controlled and has been off insulin drip. Patient has been transferred to [facility] this afternoon. Past Medical History Cardiac Medical History: Reports: Hyperlipidemia Endocrine Medical History: Reports: Diabetes Mellitus Type 2 Musculoskeltal Medical History: Reports: Arthritis Past Surgical History Past Surgical History: Reports: Tubal Ligation Social History Information Source: Patient Lives with: Family Smoking Status: Current Every Day Smoker Cigarettes Packs Per Day: 0.5 Frequency of Alcohol Use: Occasional Hx Recreational Drug Use: No Drugs: None Hx Prescription Drug Abuse: No - Advance Directive Resuscitation Status: Full Code Family History Family History: DM - Mother, , Malignancy - Father has lung cancer Parental Family History Reviewed: Yes Children Family History Reviewed: Yes Sibling(s) Family History Reviewed.: Yes Medication/Allergy Home Medications: Metformin HCl [Glucophage 500 mg Tablet] 500 mg PO QHS 08/29/18 Allergies/Adverse Reactions: No Known Allergies Allergy (Verified 08/28/18 17:58) Review of Systems All systems: reviewed and no additional remarkable complaints except as stated Review of Systems: Constitutional: ABSENT: chills, fever(s), headache(s), weight gain, weight loss; admits fatigue Eyes: ABSENT: visual disturbances Ears: ABSENT: hearing changes Cardiovascular: ABSENT: Dyspnea on exertion, edema, orthropnea, palpitations; admits occasional chest pains Respiratory: ABSENT: Hemoptysis; admits some shortness of breath and cough Gastrointestinal: [ABSENT: Constipation, diarrhea, hematemesis, hematochezia; admits abdominal pain and nausea : Admits polyuria, denies dysuria no hematuria Musculoskeletal: ABSENT: joint swelling Integumentary: ABSENT: rash, wounds Neurological: ABSENT: abnormal gait, abnormal speech, confusion, dizziness, focal weakness, numbness, syncope Psychiatric: ABSENT: anxiety, depression Endocrine: ABSENT: cold intolerance, heat intolerance; admits polydipsia, thirst and polyuria Hematologic/Lymphatic: ABSENT: easy bleeding, easy bruising, lymphadenopathy Physical Exam Vital Signs: Temp Pulse Resp BP Pulse Ox 98.8 F 108 H 18 148/79 H 94 08/30/18 12:01 08/30/18 14:00 08/30/18 12:32 08/30/18 12:32 08/30/18 12:32 Intake & Output 08/29/18 08/30/18 08/31/18 06:59 06:59 06:59 Intake Total 4311 4059 74 Output Total 175 2445 525 Balance 4136 1614 -451 Weight 143.8 kg 143.4 kg Exam: General appearance: No acute distress, cooperative, well-developed, well- nourished Head exam: PRESENT: atraumatic, normocephalic Eye exam: PRESENT: Conjunctiva [place], EOMI, PERRLA. ABSENT: conjunctival injection, scleral icterus Mouth exam: PRESENT: Relatively dry oral mucosa, neck supple, tongue midline Neck exam: PRESENT: full ROM. ABSENT: carotid bruit, JVD, lymphadenopathy, thyromegaly Respiratory exam: PRESENT: clear to auscultation bilaterally. ABSENT: rales, rhonchi, stridor, wheezes Cardiovascular exam: PRESENT: RRR, +S1, +S2. ABSENT: systolic murmur Pulses: PRESENT: normal radial pulses, normal dorsalis pedis pulses GI/Abdominal exam: PRESENT: normal bowel sounds, soft. ABSENT: guarding, mass, tenderness Rectal exam: Deferred Extremities exam: PRESENT: full ROM. ABSENT: calf tenderness, pedal edema Musculoskeletal: PRESENT: full ROM. ABSENT: deformity Neurological exam: PRESENT: alert, Awake, Oriented to person, Oriented to place, Oriented to time, reflexes normal, CN II-XII grossly intact. ABSENT: motor se nsory deficit Psychiatric exam: PRESENT: appropriate affect, normal mood. ABSENT: homicidal ideation, suicidal ideation Skin exam: PRESENT: intact, dry, warm. ABSENT: rash Results Laboratory Results: 08/30/18 06:23 08/30/18 10:50 08/29/18 08/29/18 08/30/18 22:17 22:17 02:21 WBC RBC Hgb Hct MCV MCH MCHC RDW Plt Count Seg Neutrophils % Lymphocytes % Monocytes % Eosinophils % Basophils % Absolute Neutrophils Absolute Lymphocytes Absolute Monocytes Absolute Eosinophils Absolute Basophils Sodium 162.1 H 161.3 H Potassium 3.9 D 3.6 Chloride 126 H 127 H Carbon Dioxide 30 30 Anion Gap 6 4 L BUN 33 H 28 H Creatinine 0.88 0.83 Est GFR ( Amer) > 60 > 60 Est GFR (Non-Af Amer) > 60 > 60 Glucose 122 H 114 H Serum Osmolality 346 H Calcium 9.4 9.3 Urine Osmolality 08/30/18 08/30/18 08/30/18 06:23 06:23 08:10 WBC 13.1 H RBC 5.24 Hgb 15.1 Hct 45.4 MCV 87 MCH 28.8 MCHC 33.3 RDW 15.9 H Plt Count 112 L Seg Neutrophils % 70.0 Lymphocytes % 14.6 Monocytes % 12.5 Eosinophils % 2.0 Basophils % 0.9 Absolute Neutrophils 9.2 H Absolute Lymphocytes 1.9 Absolute Monocytes 1.6 H Absolute Eosinophils 0.3 Absolute Basophils 0.1 Sodium Cancelled 161.4 H Potassium Cancelled 4.1 Chloride Cancelled 127 H Carbon Dioxide Cancelled 29 Anion Gap Cancelled 5 BUN Cancelled 23 H Creatinine Cancelled 0.80 Est GFR ( Amer) Cancelled > 60 Est GFR (Non-Af Amer) Cancelled > 60 Glucose Cancelled 100 Serum Osmolality Calcium Cancelled 9.1 Urine Osmolality 03/15/19 03/15/19 03/15/19 10:50 10:50 11:45 WBC RBC Hgb Hct MCV MCH MCHC RDW Plt Count Seg Neutrophils % Lymphocytes % Monocytes % Eosinophils % Basophils % Absolute Neutrophils Absolute Lymphocytes Absolute Monocytes Absolute Eosinophils Absolute Basophils Sodium 159.6 H Potassium 3.8 Chloride 126 H Carbon Dioxide 29 Anion Gap 5 BUN 21 H Creatinine 0.79 Est GFR ( Amer) > 60 Est GFR (Non-Af Amer) > 60 Glucose 115 H Serum Osmolality 340 H Calcium 8.8 Urine Osmolality 552 Impressions: Chest X-Ray 08/28/18 20:43 IMPRESSION: No acute disease. Head CT 08/29/18 00:00 IMPRESSION: No acute intracranial hemorrhage. Assessment & Plan - Diagnosis (1) Hyperosmolality and hypernatremia Is this a current diagnosis for this admission?: Yes Plan: I think this can be explained by the patient's severe dehydration, with osmotic diuresis due to glucosuria manifested as polyuria associated with polydipsia and the patient presenting with diabetic ketoacidosis. Upon presentation, the patient's corrected sodium level was 170 with glucose of 1088mg. As the patient's blood sugar is corrected with fluid hydration and insulin the serum sodium represents the true sodium without any correction. This will explain serum sodium going from 146 to162. As the dehydration is corrected we expect the patient's sodium level to correct itself. It is also important to maintain and control the blood sugars. The polyuria is a result of the patient's osmotic diuresis due to glucosuria. The initial urine osmolality of 564 is consistent with this as well as the urine specific gravity. In addition the administration of saline and dextrose also enhanced this diuresis and polyuria. These findings actually makes the diagnosis of diabetes insipidus less likely. In diabetes insipidus patient usually produce a dilute water diuresis. At this time I would recommend holding off on any fluids. Encourage patient to liberalize fluid intake according to thirst. We need to monitor strict intake and output. I am going to hold any testing for diabetes insipidus including water restriction test and response to DDAVP. I do not think the patient needs DDAVP treatment at this time. Need to control blood sugar. Continue to monitor the patient's sodium and glucose levels. I discussed the case with Dr. Curtis last night, Fredy today and the patient's nurses today. (2) Acute kidney injury Is this a current diagnosis for this admission?: Yes Plan: This is secondary to prerenal azotemia due to severe dehydration as stated above. Patient's urine sodium initially was 7 which is less than 10 consistent with prerenal azotemia. With rehydration this is resolving currently. (3) Dehydration Is this a current diagnosis for this admission?: Yes (4) Diabetic ketoacidosis Qualifiers: Diabetes mellitus type: type 2 Diabetes mellitus complication detail: without coma Qualified Code(s): E11.10 - Type 2 diabetes mellitus with ketoacidosis without coma Is this a current diagnosis for this admission?: Yes Plan: Patient was treated with hydration and insulin drip. Currently off insulin drip sugars. Defer management to the hospitalist service. - Notes Notes: Thank you very much for this interesting consult. Discussed the case with the treating physicians and nurses. - Time Time Spent: Greater than 70 Minutes
[2018-08-30 23:34] LABS: APPEARANCE,URINE CLEAR; BILIRUBIN,URINE NEGATIVE (NEGATIVE); COLOR,URINE STRAW; GLUCOSE, URINE >=500 mg/dL (NEGATIVE); KETONES,URINE NEGATIVE (NEGATIVE); LEUKOCYTE ESTERASE,URINE NEGATIVE (NEGATIVE); NITRITE,URINE NEGATIVE (NEGATIVE); PROTEIN,URINE NEGATIVE (NEGATIVE); UROBILINOGEN,URINE NEGATIVE mg/dL (<2.0)
[2018-08-31] MEDS: HEPARIN SOD (PORCINE) 5,000 UNIT/ML 1 ML SYRINGE SUBCUT SCH ×3 (05:34→21:25)
[2018-08-31] MEDS: INSULIN LISPRO 100 UNIT/ML 3 ML VIAL SUBCUT SCH ×4 (08:03→21:26)
[2018-08-31] MEDS ORDERED: INSULIN GLARGINE,HUM.REC.ANLOG 1,000 UNIT/10 ML VIAL (PYX) SUBCUT SCH (10:00)
[2018-08-31] MEDS: IPRATROPIUM/ALBUTEROL 0.5-2.5 MG/3 ML AMPUL NEB PRN (10:03)
[2018-08-31] MEDS: DOCUSATE SODIUM 100 MG CAPSULE PO SCH ×2 (10:13→18:33)
[2018-08-31] MEDS ORDERED: INSULIN LISPRO 100 UNIT/ML 3 ML VIAL SUBCUT ONE (13:00)
[2018-08-31] MEDS: NYSTATIN 500000 UNIT/5 ML UDCUP PO SCH ×3 (16:45→21:26)
--- NOTE | 2018-08-31 16:59 | PDOC PROGRESS REPORT ---
Subjective Progress Note for:: 08/31/18 Subjective:: No adverse events overnight. No new complaints. Her blood sugars were going up, but she swears that she is not eating anything except what we bring to her. Urine output has been excellent. Reason For Visit: DKA HONK AMS Physical Exam Vital Signs: Temp Pulse Resp BP Pulse Ox 98.4 F 103 H 12 123/59 L 94 08/31/18 12:00 08/31/18 14:00 08/31/18 12:00 08/31/18 12:00 08/31/18 12:00 Intake & Output 08/30/18 08/31/18 09/01/18 06:59 06:59 06:59 Intake Total 4059 1961 400 Output Total 4725 4581 Balance 1614 -2564 400 Weight 143.4 kg 149.4 kg General appearance: PRESENT: no acute distress, cooperative, disheveled, morbidly obese Respiratory exam: PRESENT: clear to auscultation [place], symmetrical, unlabored. ABSENT: accessory muscle use, prolonged expiratory phas, rales, rhonchi, t achypnea, wheezes Cardiovascular exam: PRESENT: RRR, +S1, +S2 Pulses: PRESENT: normal carotid pulses Vascular exam: PRESENT: normal capillary refill GI/Abdominal exam: PRESENT: normal bowel sounds, soft. ABSENT: distended, guarding, rebound, tenderness Extremities exam: ABSENT: clubbing, pedal edema Musculoskeletal exam: PRESENT: normal inspection. ABSENT: deformity Neurological exam: PRESENT: alert, awake, oriented to person, oriented to place, oriented to time, oriented to situation Psychiatric exam: PRESENT: appropriate affect, normal mood Skin exam: PRESENT: dry, warm Results Laboratory Results: 08/30/18 06:23 08/30/18 21:28 08/30/18 08/30/18 08/30/18 20:04 21:28 23:07 Sodium Cancelled 147.6 H Potassium Cancelled 4.6 Chloride Cancelled 114 H Carbon Dioxide Cancelled 25 Anion Gap Cancelled 9 BUN Cancelled 22 H Creatinine Cancelled 0.79 Est GFR ( Amer) Cancelled > 60 Est GFR (Non-Af Amer) Cancelled > 60 Glucose Cancelled 497 H* Calcium Cancelled 8.7 Urine Color STRAW Urine Appearance CLEAR Urine pH 6.0 Ur Specific [place] 1.020 Urine Protein NEGATIVE Urine Glucose (UA) >=500 H Urine Ketones NEGATIVE Urine Blood SMALL H Urine Nitrite NEGATIVE Ur Leukocyte Esterase NEGATIVE Urine WBC (Auto) 3 Urine RBC (Auto) 1 Impressions: Chest X-Ray 08/28/18 20:43 IMPRESSION: No acute disease. Head CT 08/29/18 00:00 IMPRESSION: No acute intracranial hemorrhage. Assessment & Plan - Diagnosis (1) Diabetic ketoacidosis Qualifiers: Diabetes mellitus type: type 2 Diabetes mellitus complication detail: without coma Qualified Code(s): E11.10 - Type 2 diabetes mellitus with ketoacidosis without coma Is this a current diagnosis for this admission?: Yes Plan: Resolved. We are trying to determine what is the optimum insulin regimen for her. We got her on a sliding scale, we added some Lantus twice a day, and r estarted her metformin. (2) Hyperosmolality and hypernatremia Is this a current diagnosis for this admission?: Yes Plan: Sodium is trending down. Nephrology is following. (3) Thrush, oral Is this a current diagnosis for this admission?: Yes Plan: I have ordered some oral nystatin - Time Time Spent with patient: 25-34 minutes
[2018-08-31] MEDS: METFORMIN HCL 500 MG TABLET PO SCH (17:03)
[2018-08-31] MEDS ORDERED: NYSTATIN 500000 UNIT/5 ML UDCUP PO ONE (17:59)
[2018-08-31] MEDS ORDERED: INSULIN GLARGINE,HUM.REC.ANLOG 300 UNIT/3 ML INSULN.PEN SUBCUT SCH (18:00)
[2018-09-01] MEDS: HEPARIN SOD (PORCINE) 5,000 UNIT/ML 1 ML SYRINGE SUBCUT SCH ×3 (05:50→22:54)
[2018-09-01] MEDS: METFORMIN HCL 500 MG TABLET PO SCH ×2 (07:53→17:28)
[2018-09-01] MEDS: INSULIN LISPRO 100 UNIT/ML 3 ML VIAL SUBCUT SCH ×4 (07:53→22:58)
[2018-09-01] MEDS: DOCUSATE SODIUM 100 MG CAPSULE PO SCH ×2 (10:12→17:27)
[2018-09-01] MEDS: INSULIN GLARGINE,HUM.REC.ANLOG 300 UNIT/3 ML INSULN.PEN SUBCUT SCH ×2 (10:13→18:37)
[2018-09-01] MEDS: NYSTATIN 500000 UNIT/5 ML UDCUP PO SCH ×4 (10:27→22:58)
[2018-09-01 12:09] LABS: ANION GAP 8 (5-19); BLOOD UREA NITROGEN 18 mg/dL (7-20); CALCIUM 9.2 mg/dL (8.4-10.2); CARBON DIOXIDE 26 mmol/L (22-30); CHLORIDE 106 mmol/L (98-107); GLUCOSE 390 mg/dL (75-110); POTASSIUM 4.4 mmol/L (3.6-5.0); SODIUM 140.1 mmol/L (137-145)
--- NOTE | 2018-09-01 17:07 | PDOC PROGRESS REPORT ---
Subjective Progress Note for:: 09/01/18 Subjective:: No adverse events overnight. No new complaints. Vital signs been stable. Blood sugars have remained elevated in the upper 300s. She swears she is not eating anything other than what we are providing her. Reason For Visit: DKA JASVIR AMS Physical Exam Vital Signs: Temp Pulse Resp BP Pulse Ox 98.2 F 108 H 18 141/66 H 93 09/01/18 07:38 09/01/18 14:00 09/01/18 10:32 09/01/18 07:38 09/01/18 10:32 Intake & Output 08/31/18 09/01/18 09/02/18 06:59 06:59 06:59 Intake Total 1961 3130 480 Output Total 4503 0770 1500 Balance -2564 -1720 -1020 Weight 149.4 kg 150.6 kg General appearance: PRESENT: no acute distress, cooperative, disheveled, morbidly obese Respiratory exam: PRESENT: clear to auscultation [place], symmetrical, unlabored. ABSENT: accessory muscle use, prolonged expiratory phas, rales, rhonchi, tachypnea, wheezes Cardiovascular exam: PRESENT: RRR, +S1, +S2 Pulses: PRESENT: normal carotid pulses Vascular exam: PRESENT: normal capillary refill GI/Abdominal exam: PRESENT: normal bowel sounds, soft. ABSENT: distended, guarding, rebound, tenderness Extremities exam: ABSENT: clubbing, pedal edema Musculoskeletal exam: PRESENT: normal inspection. ABSENT: deformity Neurological exam: PRESENT: alert, awake, oriented to person, oriented to place, oriented to time, oriented to situation Psychiatric exam: PRESENT: appropriate affect, normal mood Skin exam: PRESENT: dry, warm Results Laboratory Results: 08/30/18 06:23 09/01/18 10:57 09/01/18 10:57 Sodium 140.1 Potassium 4.4 Chloride 106 Carbon Dioxide 26 Anion Gap 8 BUN 18 Creatinine 0.65 Est GFR ( Amer) > 60 Est GFR (Non-Af Amer) > 60 Glucose 390 H Calcium 9.2 Impressions: Chest X-Ray 08/28/18 20:43 IMPRESSION: No acute disease. Head CT 08/29/18 00:00 IMPRESSION: No acute intracranial hemorrhage. Assessment & Plan - Diagnosis (1) Diabetic ketoacidosis Qualifiers: Diabetes mellitus type: type 2 Diabetes mellitus complication detail: without coma Qualified Code(s): E11.10 - Type 2 diabetes mellitus with ketoacidosis without coma Is this a current diagnosis for this admission?: Yes Plan: Resolved. We are trying to determine what is the optimum insulin regimen for her. We got her on a sliding scale, we added some Lantus twice a day, and restarted her metformin. I have increased her Lantus today. 1 of the problems were having is that she is never had insulin before and so we do not know how she will respond, and so have not wanted to go up in large increments on her insulin dosing. Once her blood sugars are reasonably controlled, she can be discharged home. (2) Hyperosmolality and hypernatremia Is this a current diagnosis for this admission?: Yes Plan: Resolved, was due to dehydration secondary to her diabetes. (3) Thrush, oral Is this a current diagnosis for this admission?: Yes Plan: I have ordered some oral nystatin - Time Time Spent with patient: 25-34 minutes
[2018-09-02] MEDS: HEPARIN SOD (PORCINE) 5,000 UNIT/ML 1 ML SYRINGE SUBCUT SCH ×3 (06:06→21:37)
[2018-09-02] MEDS: METFORMIN HCL 500 MG TABLET PO SCH (08:09)
[2018-09-02] MEDS: INSULIN LISPRO 100 UNIT/ML 3 ML VIAL SUBCUT SCH ×4 (08:09→21:37)
[2018-09-02] MEDS: DOCUSATE SODIUM 100 MG CAPSULE PO SCH ×2 (10:41→17:10)
[2018-09-02] MEDS: NYSTATIN 500000 UNIT/5 ML UDCUP PO SCH ×4 (10:41→21:37)
[2018-09-02] MEDS: INSULIN GLARGINE,HUM.REC.ANLOG 300 UNIT/3 ML INSULN.PEN SUBCUT SCH ×2 (10:41→17:10)
--- NOTE | 2018-09-02 16:18 | PDOC PROGRESS REPORT ---
Subjective Progress Note for:: 09/02/18 Subjective:: 09/02/2018 obese female admitted for uncontrolled blood sugars blood sugars are still more than 300 alert and awake oriented communicating very well denies any complaints. Reason For Visit: DKA HONK AMS Physical Exam Vital Signs: Temp Pulse Resp BP Pulse Ox 98.6 F 106 H 26 H 133/52 H 95 09/02/18 03:52 09/02/18 14:00 09/02/18 10:31 09/02/18 03:52 09/02/18 10:31 Intake & Output 09/01/18 09/02/18 09/03/18 06:59 06:59 06:59 Intake Total 3130 2835 237 Output Total 6470 6186 Balance -1720 -1343 237 Weight 150.6 kg 149.7 kg General appearance: PRESENT: no acute distress Head exam: PRESENT: atraumatic Eye exam: PRESENT: PERRLA Mouth exam: PRESENT: moist, tongue midline Neck exam: ABSENT: carotid bruit, JVD, lymphadenopathy, thyromegaly Respiratory exam: PRESENT: clear to auscultation [place]. ABSENT: rales, rhonchi, wheezes Cardiovascular exam: PRESENT: RRR. ABSENT: diastolic murmur, rubs, systolic murmur GI/Abdominal exam: PRESENT: normal bowel sounds, soft. ABSENT: distended, guarding, mass, organolmegaly, rebound, tenderness Extremities exam: PRESENT: full ROM. ABSENT: calf tenderness, clubbing, pedal edema Neurological exam: PRESENT: alert, awake, oriented to person, oriented to place, oriented to time, oriented to situation, CN II-XII grossly intact. ABSENT: motor sensory deficit Psychiatric exam: PRESENT: appropriate affect, normal mood. ABSENT: homicidal ideation, suicidal ideation Results Laboratory Results: 08/30/18 06:23 09/01/18 10:57 Impressions: Chest X-Ray 08/28/18 20:43 IMPRESSION: No acute disease. Head CT 08/29/18 00:00 IMPRESSION: No acute intracranial hemorrhage. Assessment & Plan - Diagnosis (1) Diabetic ketoacidosis Qualifiers: Diabetes mellitus type: type 2 Diabetes mellitus complication detail: with out coma Qualified Code(s): E11.10 - Type 2 diabetes mellitus with ketoac idosis without coma Is this a current diagnosis for this admission?: Yes Plan: Resolved. We are trying to determine what is the optimum insulin regimen for her. We got her on a sliding scale, we added some Lantus twice a day, and restarted her metformin. I have increased her Lantus today. 1 of the problems were having is that she is never had insulin before and so we do not know how she will respond, and so have not wanted to go up in large increments on her insulin dosing. Once her blood sugars are reasonably controlled, she can be discharged home. 09/02/2018 patient's latest blood sugar is more than 345. Patient is presently o n Lantus 15 units twice a day and insulin sliding scale. Lantus dose was increased to 25 units twice a day and Metformin was discontinued. Diet and exercise weight loss was advised dietary consult was requested. (2) Hyperosmolality and hypernatremia Is this a current diagnosis for this admission?: Yes Plan: 09/02/2018 hyper osmolarity hyponatremia resolved. Plan is to recheck labs tomorrow. (3) Thrush, oral Is this a current diagnosis for this admission?: Yes Plan: Patient is presently on oral nystatin plan is to continue the present management. (4) Morbid obesity Is this a current diagnosis for this admission?: No Plan: 09/02/2018-patient's BMI is more than 45 diet exercise weight loss lifestyle modifications are discussed with the patient dietary consult was recommended. - Time Time Spent with patient: 15-24 minutes Medications reviewed and adjusted accordingly: Yes Anticipated discharge: Home
[2018-09-03] MEDS: HEPARIN SOD (PORCINE) 5,000 UNIT/ML 1 ML SYRINGE SUBCUT SCH ×2 (05:51→13:20)
[2018-09-03 06:55] LABS: ABSOLUTE BASOPHILS # (AUTO) 0.1 10^3/uL (0.0-0.2); ABSOLUTE EOSINOPHILS # (AUTO) 0.2 10^3/uL (0.0-0.6); ABSOLUTE LYMPHOCYTES (AUTO) 1.6 10^3/uL (0.5-4.7); ABSOLUTE MONOCYTES (AUTO) 0.9 10^3/uL (0.1-1.4); BASOPHILS % (AUTO) 1.2 % (0-2); HEMATOCRIT 39.2 % (36.0-47.0); HEMOGLOBIN 13.3 g/dL (12.0-15.5); LYMPHOCYTES % (AUTO) 21.2 % (13-45); MEAN CORPUSCULAR HEMOGLOBIN 28.9 pg (27.0-33.4); MEAN CORPUSCULAR HGB CONC 33.9 g/dL (32.0-36.0); MEAN CORPUSCULAR VOLUME 85 fl (80-97); PLATELET COUNT 146 10^3/uL (150-450); RED CELL DISTRIBUTION WIDTH 15.7 % (11.5-14.0); SEGMENTED NEUTROPHILS % (AUTO) 64.6 % (42-78); TOTAL CELLS COUNTED % (AUTO) 100 %; WHITE BLOOD COUNT 7.8 10^3/uL (4.0-10.5)
[2018-09-03 07:22] LABS: ALANINE AMINOTRANSFERASE 46 U/L (9-52); ALBUMIN 2.9 g/dL (3.5-5.0); ALKALINE PHOSPHATASE 104 U/L (38-126); ANION GAP 6 (5-19); ASPARTATE AMINO TRANSFERASE 55 U/L (14-36); BILIRUBIN,DIRECT 0.2 mg/dL (0.0-0.4); BILIRUBIN,TOTAL 0.5 mg/dL (0.2-1.3); BLOOD UREA NITROGEN 13 mg/dL (7-20); CARBON DIOXIDE 26 mmol/L (22-30); CHLORIDE 108 mmol/L (98-107); GLUCOSE 289 mg/dL (75-110); POTASSIUM 3.9 mmol/L (3.6-5.0); SODIUM 140.4 mmol/L (137-145); TOTAL PROTEIN 5.9 g/dL (6.3-8.2)
[2018-09-03] MEDS: INSULIN LISPRO 100 UNIT/ML 3 ML VIAL SUBCUT SCH ×2 (10:46→13:14)
[2018-09-03] MEDS: NYSTATIN 500000 UNIT/5 ML UDCUP PO SCH (10:47)
[2018-09-03] MEDS: INSULIN GLARGINE,HUM.REC.ANLOG 300 UNIT/3 ML INSULN.PEN SUBCUT SCH (10:47)
[2018-09-03] MEDS: DOCUSATE SODIUM 100 MG CAPSULE PO SCH (10:50)
[2018-09-03 14:35] VITALS: BP 137/67
--- NOTE | 2018-09-03 19:47 | PDOC DISCHARGE SUMMARY ---
General - Admit/Disc Date/PCP Admission Date/Primary Care Provider: 08/29/18 00:19 Discharge Date: 09/03/18 - Discharge Diagnosis (1) Diabetic ketoacidosis Is this a current diagnosis for this admission?: Yes Summary: With aggressive treatment the ketoacidosis resolved. The patient is currently on Lantus with a Humalog sliding scale. She is stable for discharge to home. I did call [facility] pharmacy. The most affordable regimen for the patient at discharge is going to be Lantus, sliding scale with regular human insulin and an increase in her baseline dose of metformin. See below. (2) Hyperosmolality due to uncontrolled type 1 diabetes mellitus Is this a current diagnosis for this admission?: Yes Summary: Her glucose was 1000 at the time of admission. She now is anywhere from 290 - 380. This is a significant change from her admission numbers. I do not want to drop her too far too fast as she will become symptomatic. In discussions with the pharmacy the most affordable regimen for the patient will be: Lantus 28 units twice daily. She was able to get a 30-day supply for $10 as a one-time promotion She was sliding scale with Novolin regular insulin at breakfast and supper. Sliding scale was noted on the prescription. This was affordable at $25. A box of syringes was only $13 and her metformin 1000 mg extended release twice daily was only $4. The patient was very appreciative of my efforts. The pharmacist also informed me that they will do follow-up calls to check on the patient. We have scheduled a visit with [facility]. The patient understands that she must try and get some kind of insurance to establish with a physician in be able to afford medications. (3) Morbid obesity Is this a current diagnosis for this admission?: Yes Summary: Initial compliance with a diabetic diet as a start. The patient should consider specific weight loss management strategies. She can work with her primary care physician. (4) Thrush, oral Is this a current diagnosis for this admission?: Yes Summary: Treated with nystatin. - Additional Information Resuscitation Status: Full Code Discharge Diet: Diabetic Discharge Activity: Activity As Tolerated Prescriptions: Insulin Glargine,Hum.rec.anlog [Lantus Insulin 100 Unit/mL] 28 unit SUBCUT BID 30 Days #6 insuln.pen Insulin Regular, Human [Novolin R (Reg) Insulin 100 unit/mL] 0 unit SUBCUT .SLD SCALE 30 Days #10 ml Metformin HCl [Metformin ER Osmotic] 1,000 mg PO BID 30 Days #30 tab.er.24 Home Medications: Insulin Glargine,Hum.rec.anlog [Lantus Insulin 100 Unit/mL] 28 unit SUBCUT BID 30 Days #6 insuln.pen 09/03/18 Insulin Regular, Human [Novolin R (Reg) Insulin 100 unit/mL] 0 unit SUBCUT .SLD SCALE 30 Days #10 ml 09/03/18 Metformin HCl [Metformin ER Osmotic] 1,000 mg PO BID 30 Days #30 tab.er.24 09/03/18 History of Present Illness Patient complains of: Weakness and lethargy History of Present Illness: MARK RASHID is a 37 year old female newly diagnosed with diabetes mellitus several weeks ago. Recent hemoglobin A1c was 11.1. She has a sister with diabetes as well. The patient began to notice increased urine output and thirst. Her sugars became uncontrollable. On admission her serum glucose was greater than 1000. She was placed on insulin with serial labs. Hospital Course Hospital Course: The patient had a fairly unremarkable hospital course. She was able to transition to long-acting insulin with sliding scale. Even though her numbers are still in the 203 100 range dropping her from 1000-150 would be deleterious. If she can maintain her blood glucose between 150 and 250 for a short period then increasing the regimen with a goal of under 150 is reasonable. She did have oral candidiasis and this was treated with nystatin. Physical Exam Vital Signs: Temp Pulse Resp BP Pulse Ox 98.4 F 93 17 118/48 L 92 09/03/18 11:31 09/03/18 11:31 09/03/18 11:31 09/03/18 11:31 09/03/18 11:31 Intake & Output 09/02/18 09/03/18 09/04/18 06:59 06:59 06:59 Intake Total 2835 1674 Output Total 6750 1000 Balance -3915 674 Weight 149.7 kg 150.3 kg General appearance: PRESENT: no acute distress, morbidly obese Head exam: PRESENT: atraumatic, normocephalic Eye exam: PRESENT: conjunctiva pink. ABSENT: scleral icterus Ear exam: PRESENT: normal external ear exam Mouth exam: PRESENT: moist, tongue midline Neck exam: PRESENT: full ROM. ABSENT: carotid bruit, JVD, lymphadenopathy Respiratory exam: PRESENT: clear to auscultation [place], symmetrical, unlabored. ABSENT: accessory muscle use, rales, rhonchi, wheezes Cardiovascular exam: PRESENT: RRR, +S1, +S2 GI/Abdominal exam: PRESENT: normal bowel sounds, soft, other - Pendulous abdomen. ABSENT: tenderness Neurological exam: PRESENT: alert, awake, oriented to person, oriented to place, oriented to time, oriented to situation, CN II-XII grossly intact Psychiatric exam: PRESENT: appropriate affect. ABSENT: agitated, anxious Focused psych exam: ABSENT: delusional, restlessness Results Laboratory Results: 09/03/18 06:33 09/03/18 06:33 09/03/18 09/03/18 06:33 06:33 WBC 7.8 RBC 4.60 Hgb 13.3 Hct 39.2 MCV 85 MCH 28.9 MCHC 33.9 RDW 15.7 H Plt Count 146 L Seg Neutrophils % 64.6 Lymphocytes % 21.2 Monocytes % 11.0 Eosinophils % 2.0 Basophils % 1.2 Absolute Neutrophils 5.0 Absolute Lymphocytes 1.6 Absolute Monocytes 0.9 Absolute Eosinophils 0.2 Absolute Basophils 0.1 Sodium 140.4 Potassium 3.9 Chloride 108 H Carbon Dioxide 26 Anion Gap 6 BUN 13 Creatinine 0.63 Est GFR ( Amer) > 60 Est GFR (Non-Af Amer) > 60 Glucose 289 H Calcium 9.0 Magnesium 1.8 Total Bilirubin 0.5 AST 55 H ALT 46 Alkaline Phosphatase 104 Total Protein 5.9 L Albumin 2.9 L 08/29/18 11:16 Blood Blood Culture - Final NO GROWTH IN 5 DAYS Impressions: Chest X-Ray 08/28/18 20:43 IMPRESSION: No acute disease. Head CT 08/29/18 00:00 IMPRESSION: No acute intracranial hemorrhage. Qualifiers - * PATIENT BEING DISCHARGED WITH ANY OF THE FOLLOWING DIAGNOSIS: No Plan Discharge Plan: As above Time Spent: Greater than 30 Minutes
== END 2018-09-03 15:10 | disposition home or self-care (01) | DRG 638 ==
LOC: ER 17:54 → EH 08-29 00:19 → ICU 08-29 04:55 → 3S 08-30 13:13 → 5 09-02 23:31
PROVIDERS: ADMIT Internal Medicine; ATTEND Internal Medicine
PROC: 3E0F73Z Introduction of Anti-inflammatory into Respiratory Tract, Via Natural or Artificial Opening (ICD-10-PCS; principal; 2018-08-29)
DX: E11.10 Type 2 diabetes mellitus with ketoacidosis without coma (principal); B37.0 Candidal stomatitis; E87.0 Hyperosmolality and hypernatremia; N17.9 Acute kidney failure, unspecified; E23.2 Diabetes insipidus; Z68.42 Body mass index [BMI] 45.0-49.9, adult; E66.01 Morbid (severe) obesity due to excess calories; M19.90 Unspecified osteoarthritis, unspecified site; E78.5 Hyperlipidemia, unspecified; E86.0 Dehydration; E87.5 Hyperkalemia; I10 Essential (primary) hypertension; F17.210 Nicotine dependence, cigarettes, uncomplicated; Z83.3 Family history of diabetes mellitus; Z80.1 Family history of malignant neoplasm of trachea, bronchus and lung
CPT/HCPCS: 36415; 70450; 71045; 80048; 80053; 80307; 81001; 81025; 82803; 82947; 82962; 83036; 83605; 83735; 83930; 83935; 84133; 84156; 84300; 85025; 87040; 87077; 93005; 93010; 96361; 96374; 99291; 99292; J0696; J1815; J2405; J2597; J3480; J3490; J7030; J7620

== ENCOUNTER → 2018-10-10 | Outpatient (CLI) | payer OTHER ==
[2018-10-10 11:28] LABS: CHOLESTEROL 234.58 mg/dL (0-200); TRIGLYCERIDES 121 mg/dL (<150)
[2018-10-10 11:40] LABS: DIRECT LDL 156 mg/dL (<100)
== END ==
LOC: CCC 09:51
DX: E11.8 Type 2 diabetes mellitus with unspecified complications (principal); E66.9 Obesity, unspecified
CPT/HCPCS: 36415; 80061

== ENCOUNTER 2019-03-27 09:16 | Observation (INO) | payer SELFPAY ==
[2019-03-27] MEDS ORDERED: IPRATROPIUM/ALBUTEROL 0.5-2.5 MG/3 ML AMPUL NEB ONE (10:32)
[2019-03-27] MEDS ORDERED: ALBUTEROL SULFATE 0.083% NEB 2.5 MG/3 ML AMPUL NEB ONE ×2 (10:32→11:50)
[2019-03-27 10:58] LABS: ABSOLUTE BASOPHILS # (AUTO) 0.1 10^3/uL (0.0-0.2); ABSOLUTE EOSINOPHILS # (AUTO) 0.2 10^3/uL (0.0-0.6); ABSOLUTE LYMPHOCYTES (AUTO) 2.5 10^3/uL (0.5-4.7); ABSOLUTE MONOCYTES (AUTO) 0.8 10^3/uL (0.1-1.4); ABSOLUTE NEUT (AUTO) 5.1 10^3/uL (1.7-8.2); BASOPHILS % (AUTO) 0.8 % (0-2); HEMATOCRIT 41.3 % (36.0-47.0); HEMOGLOBIN 13.9 g/dL (12.0-15.5); LYMPHOCYTES % (AUTO) 29.3 % (13-45); MEAN CORPUSCULAR HEMOGLOBIN 28.9 pg (27.0-33.4); MEAN CORPUSCULAR HGB CONC 33.6 g/dL (32.0-36.0); MEAN CORPUSCULAR VOLUME 86 fl (80-97); PLATELET COUNT 223 10^3/uL (150-450); RED BLOOD COUNT 4.81 10^6/uL (3.72-5.28); RED CELL DISTRIBUTION WIDTH 16.2 % (11.5-14.0); SEGMENTED NEUTROPHILS % (AUTO) 58.9 % (42-78); TOTAL CELLS COUNTED % (AUTO) 100 %; WHITE BLOOD COUNT 8.6 10^3/uL (4.0-10.5)
[2019-03-27] MEDS: MAGNESIUM SULFATE/D5W 1 GM/100 ML RTUPB IV SCH ×2 (11:10→13:42)
--- NOTE | 2019-03-27 11:10 | RADIOLOGY REPORT (SQ) ---
EXAM DESCRIPTION: CHEST SINGLE VIEW COMPLETED DATE/TIME: 03/27/2019 10:54 am REASON FOR STUDY: bed 1 db COMPARISON: AP chest 08/28/2018 Two-view chest 07/18/2018 EXAM PARAMETERS: NUMBER OF VIEWS: One view. TECHNIQUE: Single frontal radiographic view of the chest acquired. RADIATION DOSE: NA LIMITATIONS: None. FINDINGS: LUNGS AND PLEURA: No opacities, masses or pneumothorax. No pleural effusion. MEDIASTINUM AND HILAR STRUCTURES: No masses. Contour normal. HEART AND VASCULAR STRUCTURES: Heart normal in size. Normal vasculature. BONES: No acute findings. HARDWARE: None in the chest. OTHER: No other significant finding. IMPRESSION: NO ACUTE RADIOGRAPHIC FINDING IN THE CHEST. TECHNICAL DOCUMENTATION: JOB ID: [id number] [employer]- All Rights Reserved Reading location - IP/workstation name: [email or web address]
[2019-03-27 11:15] LABS: ALBUMIN 3.7 g/dL (3.5-5.0); ALKALINE PHOSPHATASE 78 U/L (38-126); ASPARTATE AMINO TRANSFERASE 18 U/L (14-36); BILIRUBIN,DIRECT 0.1 mg/dL (0.0-0.4); BILIRUBIN,TOTAL 0.4 mg/dL (0.2-1.3); BLOOD UREA NITROGEN 9 mg/dL (7-20); CALCIUM 9.3 mg/dL (8.4-10.2); CHLORIDE 104 mmol/L (98-107); CREATINE KINASE 68 U/L (30-135); GLUCOSE 125 mg/dL (75-110); POTASSIUM 4.3 mmol/L (3.6-5.0); TOTAL PROTEIN 7.3 g/dL (6.3-8.2)
[2019-03-27 11:20] LABS: CARBON DIOXIDE 32 mmol/L (22-30)
[2019-03-27 11:21] LABS: ANION GAP 4 (5-19)
[2019-03-27 11:28] LABS: CREATINE KINASE MB 0.56 ng/mL (<4.55)
[2019-03-27 11:31] LABS: TROPONIN I < 0.012 ng/mL
[2019-03-27 11:34] LABS: APPEARANCE,URINE CLEAR; BILIRUBIN,URINE NEGATIVE (NEGATIVE); COLOR,URINE YELLOW; GLUCOSE, URINE NEGATIVE (NEGATIVE); KETONES,URINE NEGATIVE (NEGATIVE); LEUKOCYTE ESTERASE,URINE NEGATIVE (NEGATIVE); NITRITE,URINE NEGATIVE (NEGATIVE); PROTEIN,URINE NEGATIVE (NEGATIVE); URINE SPECIFIC GRAVITY 1.012; UROBILINOGEN,URINE NEGATIVE mg/dL (<2.0)
--- NOTE | 2019-03-27 12:24 | ER Document Report ---
Entered by JULIENNE WOOD SCRIBE 03/27/19 1033 Acting as scribe for:CAIO FISH MD ED Respiratory Problem - General Chief Complaint: Breathing Difficulty Stated Complaint: SHORT OF BREATH,WHEEZING Time Seen by Provider: 03/27/19 10:21 Mode of Arrival: Ambulatory Information source: Patient Notes: 38-year-old female who presents to the emergency department today with complaints of a productive cough with yellow sputum for the last week. Patient states she normally wheezes when she gets a cold. Patient states she has chills but denies any fevers. Patient states her blood sugars have been running in the 100s for the most part with the highest reading in the last few days being 252. TRAVEL OUTSIDE OF THE [place] IN LAST 30 DAYS: No - Related Data Allergies/Adverse Reactions: No Known Allergies Allergy (Verified 08/28/18 17:58) Past Medical History - General Information source: Patient - Social History Smoking Status: Current Every Day Smoker Cigarette use (# per day): Yes Chew tobacco use (# tins/day): No Frequency of alcohol use: None Drug Abuse: None Family History: Reviewed & Not Pertinent, DM Patient has suicidal ideation: No Patient has homicidal ideation: No - Past Medical History Cardiac Medical History: Reports: Hx Hypercholesterolemia, Hx Hypertension Endocrine Medical History: Reports: Hx Diabetes Mellitus Type 2 Musculoskeletal Medical History: Reports Hx Arthritis, Reports Hx Musculoskeleta l Deformity Past Surgical History: Reports: Hx Tubal Ligation - Immunizations Hx Diphtheria, Pertussis, Tetanus Vaccination: Yes Review of Systems - Review of Systems Constitutional: Chills. denies: Fever EENT: No symptoms reported Cardiovascular: No symptoms reported Respiratory: See HPI Gastrointestinal: No symptoms reported Genitourinary: No symptoms reported Female Genitourinary: No symptoms reported Musculoskeletal: No symptoms reported Skin: No symptoms reported Hematologic/Lymphatic: No symptoms reported Neurological/Psychological: No symptoms reported -: Yes All other systems reviewed and negative Physical Exam - Vital signs Vitals: Temp Pulse Resp BP Pulse Ox 99.1 F 109 H 22 H 133/87 H 94 03/27/19 09:20 03/27/19 09:20 03/27/19 09:20 03/27/19 09:20 03/27/19 09:20 - Notes Notes: Physical Exam: General: Alert, appears uncomfortable. HEENT: Normocephalic. Atraumatic. PERRL. Extraocular movements intact. Oropharynx clear. Neck: Supple. Non-tender. Respiratory: Mild respiratory distress. Intermittent cough. Expiratory wheezing and rhonchi bilaterally. Cardiovascular: Regular rate and rhythm. Abdominal: obese. Non-tender. No distension. Normal Bowel Sounds. Back: No gross abnormalities. Extremities: Moves all four extremities. Upper extremities: Normal inspection. Normal ROM. Lower extremities: Normal inspection. No edema. Normal ROM. Neurological: Normal cognition. AAOx4. Normal speech. Psychological: Normal affect. Normal Mood. Skin: Warm. Dry. Normal color. Course - Vital Signs Vital signs: Temp Pulse Resp BP Pulse Ox 99.1 F 109 H 22 H 133/87 H 94 03/27/19 09:20 03/27/19 09:20 03/27/19 09:20 03/27/19 09:20 03/27/19 10:33 - Laboratory Result Diagrams: 03/27/19 10:48 03/27/19 10:48 Laboratory results interpreted by me: 03/27/19 03/27/19 03/27/19 10:48 10:48 11:15 RDW 16.2 H Carbon Dioxide 32 H Anion Gap 4 L Glucose 125 H Urine Blood SMALL H - Diagnostic Test Radiology reviewed: Image reviewed, Reports reviewed - Chest x-ray does not show any acute cardiopulmonary process. - EKG Interpretation by Sc EKG shows normal: Sinus rhythm, Penrose, Intervals, QRS Complexes, ST-T Waves Rate: Normal - 79 Rhythm: NSR - Consults Dr. Schwarz Time consulted: 12:50 Consulted provider: will come to ER Discharge - Discharge Clinical Impression: Acute severe exacerbation of asthma Condition: Stable Disposition: ADMITTED INPATIENT Admitting Provider: Karishma (Hospitalist) Unit Admitted: Medical Floor Scribe Attestation: 03/27/19 10:37 I personally performed the services described in the documentation, reviewed and edited the documentation which was dictated to the scribe in my presence, and it accurately records my words and actions. I personally performed the services described in the documentation, reviewed and edited the documentation which was dictated to the scribe in my presence, and it accurately records my words and actions.
[2019-03-27] MEDS ORDERED: METHYLPREDNISOLONE INJ 125 MG/2 ML SDV IV ONE (12:31)
--- NOTE | 2019-03-27 13:06 | EKG REPORT ---
SEVERITY:- NORMAL ECG - SINUS RHYTHM : Confirmed by: Serafin Parks MD 27-Mar-2019 13:04:45
[2019-03-27] MEDS ORDERED: ALBUTEROL SULFATE 0.083% NEB 2.5 MG/3 ML AMPUL NEB PRN ×2 (13:15→20:00)
[2019-03-27] MEDS ORDERED: DEXTROSE 50%-WATER 25 GM/50 ML DISP.SYRIN IV PRN ×2 (13:15)
[2019-03-27] MEDS ORDERED: GLUCAGON,HUMAN RECOMB 1 MG INJ IM PRN (13:15)
[2019-03-27] MEDS ORDERED: IPRATROPIUM/ALBUTEROL 0.5-2.5 MG/3 ML AMPUL NEB SCH (13:15)
[2019-03-27] MEDS ORDERED: DEXTROSE 40% GEL 15 GM TUBE PO PRN ×2 (13:15)
[2019-03-27 15:05] LABS: A TYPE INFLUENZA AG NEGATIVE (NEGATIVE); B INFLUENZA AG NEGATIVE (NEGATIVE)
--- NOTE | 2019-03-27 16:07 | PDOC H&P ---
History of Present Illness Patient complains of: cough, SOB History of Present Illness: MARK RASHID is a 38 year old female with a past medical history of IDDM, hyperlipidemia, chronic smoking and questionable history of asthma who is presenting with cough and increasing shortness of breath. Patient says that she is started having nasal congestion and minimally productive cough with malaise for almost a week now. She says that she started to have progressive shortness of breath associated with wheezing in the past 3 days. She says she has been on inhalers before for questionable history of asthma but has not been formally diagnosed with asthma nor COPD. She does report she smoked at least half a pack of cigarettes. In the ER, she was noted to be tachypneic and have significant bilateral wheezing. She was given breathing treatments, magnesium and Solu-Medrol. She had initial relief but started having recurrence of the wheezing and increasing shortness of breath again. Past Medical History Cardiac Medical History: Reports: Hyperlipidema, Hypertension Endocrine Medical History: Reports: Diabetes Mellitus Type 2 Musculoskeltal Medical History: Reports: Arthritis Past Surgical History Past Surgical History: Reports: Tubal Ligation Social History Smoking Status: Current Every Day Smoker Electronic Cigarette use?: No Frequency of Alcohol Use: Occasional Hx Recreational Drug Use: No Drugs: None Hx Prescription Drug Abuse: No Family History Family History: Reviewed & Not Pertinent, DM Parental Family History Reviewed: Yes - No premature CAD Children Family History Reviewed: No Sibling(s) Family History Reviewed.: No Medication/Allergy Home Medications: Insulin Glargine,Hum.rec.anlog [Lantus Insulin 100 Unit/1 ml 10 ml] 28 units SQ BID 03/27/19 Insulin Regular, Human [Novolin R] 0 units SQ .PERSLIDINGSCALE 03/27/19 Metformin HCl [Metformin HCl ER] 1,000 mg PO BID 03/27/19 Allergies/Adverse Reactions: No Known Allergies Allergy (Verified 08/28/18 17:58) Review of Systems All systems: reviewed and no additional remarkable complaints except as stated - As mentioned in HPI Physical Exam Vital Signs: Temp Pulse Resp BP Pulse Ox 99.1 F 109 H 22 H 133/87 H 94 03/27/19 09:20 03/27/19 09:20 03/27/19 09:20 03/27/19 09:20 03/27/19 10:33 Intake & Output 03/26/19 03/27/19 03/28/19 06:59 06:59 06:59 Weight 312 lb 6.32 oz General appearance: PRESENT: morbidly obese, other - Slightly tachypneic Head exam: PRESENT: atraumatic, normocephalic Eye exam: PRESENT: conjunctiva pink, EOMI, PERRLA. ABSENT: scleral icterus Ear exam: PRESENT: normal external ear exam Mouth exam: PRESENT: moist, tongue midline Neck exam: ABSENT: carotid bruit, JVD, lymphadenopathy, thyromegaly Respiratory exam: PRESENT: rhonchi, wheezes. ABSENT: rales Cardiovascular exam: PRESENT: RRR. ABSENT: diastolic murmur, rubs, systolic murmur Pulses: PRESENT: normal dorsalis pedis pul GI/Abdominal exam: PRESENT: normal bowel sounds, soft. ABSENT: distended, guarding, mass, organolmegaly, rebound, tenderness Rectal exam: PRESENT: deferred Extremities exam: PRESENT: full ROM. ABSENT: calf tenderness, clubbing, pedal edema Neurological exam: PRESENT: alert, awake, oriented to person, oriented to place, oriented to time, oriented to situation, CN II-XII grossly intact. ABSENT: motor sensory deficit Results Laboratory Results: 03/27/19 10:48 03/27/19 10:48 03/27/19 03/27/19 03/27/19 10:48 10:48 11:15 WBC 8.6 RBC 4.81 Hgb 13.9 Hct 41.3 MCV 86 MCH 28.9 MCHC 33.6 RDW 16.2 H Plt Count 223 Seg Neutrophils % 58.9 Sodium 140.4 Potassium 4.3 Chloride 104 Carbon Dioxide 32 H Anion Gap 4 L BUN 9 Creatinine 0.59 Est GFR ( Amer) > 60 Glucose 125 H Calcium 9.3 Total Bilirubin 0.4 AST 18 Alkaline Phosphatase 78 Total Protein 7.3 Albumin 3.7 Urine Color YELLOW Urine Appearance CLEAR Urine pH 6.0 Ur Specific [place] 1.012 Urine Protein NEGATIVE Urine Glucose (UA) NEGATIVE Urine Ketones NEGATIVE Urine Blood SMALL H Urine Nitrite NEGATIVE Ur Leukocyte Esterase NEGATIVE Urine WBC (Auto) 0 Urine RBC (Auto) 1 03/27/19 03/27/19 10:48 10:48 Creatine Kinase 68 CK-MB (CK-2) 0.56 Troponin I < 0.012 Impressions: Chest X-Ray 03/27/19 09:31 IMPRESSION: NO ACUTE RADIOGRAPHIC FINDING IN THE CHEST. Assessment and Plan - Diagnosis (1) Acute severe exacerbation of asthma Is this a current diagnosis for this admission?: Yes Plan: She reports she had prior episode of wheezing but has not been formally diagnosed with asthma it. Will continue IV Solu-Medrol. We will add scheduled breathing treatments. Will also order for a bedside spirometry tomorrow. She will need a full PFT outpatient. (2) IDDM (insulin dependent diabetes mellitus) Is this a current diagnosis for this admission?: Yes Plan: Resume insulin regimen at home. (3) Tobacco abuse Is this a current diagnosis for this admission?: Yes Plan: Counseled on cessation. (4) Morbid obesity Is this a current diagnosis for this admission?: Yes Plan: BMI of 48.9. Counseled on weight loss. Will also be consulting dietitian. - Time Time Spent with patient: 25-34 minutes
--- NOTE | 2019-03-27 16:09 | ADVANCED CARE ---
- Diagnosis (1) Acute severe exacerbation of asthma Diagnosis Current: Yes (2) IDDM (insulin dependent diabetes mellitus) Diagnosis Current: Yes (3) Tobacco abuse Diagnosis Current: Yes (4) Morbid obesity Diagnosis Current: Yes Resuscitation Status: Full Code Discussion: Discussed with patient. She says she is a full code and prefers to receive chest compressions, defibrillation or mechanical ventilation. She says that her sister, Nkechi Benz is her surrogate medical decision maker.
[2019-03-27] MEDS: INSULIN LISPRO 100 UNIT/ML 3 ML VIAL SUBCUT SCH ×2 (17:39→21:54)
[2019-03-27] MEDS: IPRATROPIUM/ALBUTEROL 0.5-2.5 MG/3 ML AMPUL NEB SCH ×2 (19:43→23:53)
[2019-03-27] MEDS ORDERED: INSULIN GLARGINE,HUM.REC.ANLOG 1,000 UNIT/10 ML VIAL (PYX) SUBCUT ONE ×2 (21:52→22:38)
[2019-03-27] MEDS: HEPARIN SOD (PORCINE) 5,000 UNIT/ML 1 ML VIAL SUBCUT SCH (21:54)
[2019-03-27] MEDS: METHYLPREDNISOLONE INJ 40 MG/1 ML SDV IV SCH (21:54)
[2019-03-27] MEDS: INSULIN GLARGINE,HUM.REC.ANLOG 1,000 UNIT/10 ML VIAL SUBCUT SCH (21:55)
[2019-03-28] MEDS: IPRATROPIUM/ALBUTEROL 0.5-2.5 MG/3 ML AMPUL NEB SCH ×4 (03:37→16:33)
[2019-03-28] MEDS ORDERED: INFLUENZA QUAD (6MOS+) 2019-20 VAC 0.5 ML SYR IM ONE (08:00)
[2019-03-28] MEDS: INSULIN LISPRO 100 UNIT/ML 3 ML VIAL SUBCUT SCH ×3 (08:50→17:00)
[2019-03-28] MEDS ORDERED: NICOTINE 21 MG/24 HR PATCH.TD24 TD ONE (09:45)
[2019-03-28] MEDS ORDERED: AZITHROMYCIN 250 MG TABLET PO SCH (10:00)
[2019-03-28] MEDS: INSULIN GLARGINE,HUM.REC.ANLOG 1,000 UNIT/10 ML VIAL SUBCUT SCH (10:11)
[2019-03-28] MEDS: HEPARIN SOD (PORCINE) 5,000 UNIT/ML 1 ML VIAL SUBCUT SCH (10:11)
[2019-03-28] MEDS: METHYLPREDNISOLONE INJ 40 MG/1 ML SDV IV SCH (10:12)
--- NOTE | 2019-03-28 11:42 | Pulmonary Function Test ---
Pulmonary Function Test Date of Procedure:: 03/28/19 INDICATION:: Dyspnea Referring Provider: Dr. Remi Queen Barrel Washer Machine: Ivonne Mondragon, CAREER SERVICES ASSISTANT, COMMERCIAL LOAN ASSISTANT - Report Spirometry: Spirometry: pre-FVC: 3.00 L 88% post-FVC: 2.76 L 81% pre-FEV:1[1.80 L 64%] post-FEV1: 1.72 L 61% pre-FEV1/FVC %: 60 post-FEV1/FVC%: 62 predicted: 84 [id number]%: 1.33 L 44% [id number]%: 1.52 L 50% Impression: Mild obstructive ventilatory defect. Insignificant response to bronchodilator therapy. This in and of itself does not preclude a clinical trial of bronchodilator therapy. Restrictive defect is implied but cannot be diagnosed on the basis of spirometry alone. (Restrictive defect may mask the degree of obstruction.
[2019-03-28 13:35] VITALS: BP 142/88
[2019-03-29] MEDS ORDERED: NICOTINE 21 MG/24 HR PATCH.TD24 TD SCH (10:00)
--- NOTE | 2019-03-29 17:05 | PDOC DISCHARGE SUMMARY ---
Impression - Admit/DC Date/PCP Admission Date/Primary Care Provider: 03/27/19 13:40 Discharge Date: 03/28/19 - Discharge Diagnosis (1) Acute severe exacerbation of asthma Is this a current diagnosis for this admission?: Yes (2) IDDM (insulin dependent diabetes mellitus) Is this a current diagnosis for this admission?: Yes (3) Tobacco abuse Is this a current diagnosis for this admission?: Yes (4) Morbid obesity Is this a current diagnosis for this admission?: Yes - Additional Information Resuscitation Status: Full Code Discharge Activity: Activity As Tolerated, Balance Activity w/Rest Referrals: [facility] [Provider Group] - 04/09/19 3:30 pm (The [facility] said they will provide the pt with the necessary information in order to schedule an appt for a PFT, the office stated that the pt needed a [facility] card in order for the test to be done) Prescriptions: Prednisone [Deltasone 20 mg Tablet] 20 mg PO BID 5 Days #10 tablet Budesonide/Formoterol Fumarate [Symbicort Hfa 160-4.5 Mcg Inhaler 6 gm] 1 puff IH Q12 #1 inhaler Albuterol Sulfate [Ventolin 0.083% Neb 2.5 mg/3 mL Ampul] 2.5 mg NEB RTQ6HP PRN #30 vial.neb PRN Reason: for SOB or wheezing Azithromycin [Zithromax 250 mg Tablet] 500 mg PO DAILY 2 Days #2 tablet Home Medications: Insulin Glargine,Hum.rec.anlog [Lantus Insulin 100 Unit/1 ml 10 ml] 28 units SQ BID 03/27/19 Insulin Regular, Human [Novolin R] 0 units SQ .PERSLIDINGSCALE 03/27/19 Metformin HCl [Metformin HCl ER] 1,000 mg PO BID 03/27/19 Albuterol Sulfate [Ventolin 0.083% Neb 2.5 mg/3 mL Ampul] 2.5 mg NEB RTQ6HP PRN #30 vial.neb 03/28/19 Azithromycin [Zithromax 250 mg Tablet] 500 mg PO DAILY 2 Days #2 tablet 03/28/19 Budesonide/Formoterol Fumarate [Symbicort Hfa 160-4.5 Mcg Inhaler 6 gm] 1 puff IH Q12 #1 inhaler 03/28/19 Prednisone [Deltasone 20 mg Tablet] 20 mg PO BID 5 Days #10 tablet 03/28/19 History of Present Illiness History of Present Illness: MARK RASHID is a 38 year old female with a past medical history of IDDM, hyperlipidemia, chronic smoking and questionable history of asthma who is presenting with cough and increasing shortness of breath. Patient says that she is started having nasal congestion and minimally productive cough with malaise for almost a week now. She says that she started to have progressive shortness of breath associated with wheezing in the past 3 days. She says she has been on inhalers before for questionable history of asthma but has not been formally diagnosed with asthma nor COPD. She does report she smoked at least half a pack of cigarettes. In the ER, she was noted to be tachypneic and have significant bilateral wheezing. She was given breathing treatments, magnesium and Solu-Medrol. She had initial relief but started having recurrence of the wheezing and increasing shortness of breath again. Hospital Course Hospital Course: Patient was admitted for possible exacerbation of yet undiagnosed obstructive vs reactive lung disease. She was started on IV steroids and breathing treatments. She did get prompt relief with the above treatments and return to her baseline the next day. She will be discharged on 5 more days of prednisone. She will also be empirically prescribed Symbicort. She will follow-up with her PCP to get a formal PFT done with pulmonology as she has had prior episodes of wheezing before and was not formally diagnosed with either COPD or asthma. She was counseled in length about smoking cessation. Physical Exam Vital Signs: Temp Pulse Resp BP Pulse Ox 98.4 F 90 16 142/88 H 93 03/28/19 15:01 03/28/19 16:34 03/28/19 16:34 03/28/19 15:01 03/28/19 16:34 Intake & Output 03/28/19 03/29/19 03/30/19 06:59 06:59 06:59 Intake Total 1880 580 Balance 1880 580 Weight 316 lb 2.286 oz General appearance: PRESENT: no acute distress, morbidly obese Head exam: PRESENT: atraumatic, normocephalic Eye exam: PRESENT: conjunctiva pink, EOMI, PERRLA. ABSENT: scleral icterus Ear exam: PRESENT: normal external ear exam Mouth exam: PRESENT: moist, tongue midline Neck exam: ABSENT: carotid bruit, JVD, lymphadenopathy, thyromegaly Respiratory exam: PRESENT: rhonchi. ABSENT: rales, wheezes Cardiovascular exam: PRESENT: RRR. ABSENT: diastolic murmur, rubs, systolic murmur Pulses: PRESENT: normal dorsalis pedis pul GI/Abdominal exam: PRESENT: normal bowel sounds, soft. ABSENT: distended, guarding, mass, organolmegaly, rebound, tenderness Rectal exam: PRESENT: deferred Extremities exam: PRESENT: full ROM. ABSENT: calf tenderness, clubbing, pedal edema Neurological exam: PRESENT: alert, awake, oriented to person, oriented to place, oriented to time, oriented to situation, CN II-XII grossly intact. ABSENT: motor sensory deficit Results Laboratory Results: WBC 8.6 10^3/uL (4.0-10.5) 03/27/19 10:48 RBC 4.81 10^6/uL (3.72-5.28) 03/27/19 10:48 Hgb 13.9 g/dL (12.0-15.5) 03/27/19 10:48 Hct 41.3 % (36.0-47.0) 03/27/19 10:48 MCV 86 fl (80-97) 03/27/19 10:48 MCH 28.9 pg (27.0-33.4) 03/27/19 10:48 MCHC 33.6 g/dL (32.0-36.0) 03/27/19 10:48 RDW 16.2 % (11.5-14.0) H 03/27/19 10:48 Plt Count 223 10^3/uL (150-450) 03/27/19 10:48 Lymph % (Auto) 29.3 % (13-45) 03/27/19 10:48 [place] % (Auto) 9.0 % (3-13) 03/27/19 10:48 Eos % (Auto) 2.0 % (0-6) 03/27/19 10:48 Baso % (Auto) 0.8 % (0-2) 03/27/19 10:48 Absolute Neuts (auto) 5.1 10^3/uL (1.7-8.2) 03/27/19 10:48 Absolute Lymphs (auto) 2.5 10^3/uL (0.5-4.7) 03/27/19 10:48 Absolute Monos (auto) 0.8 10^3/uL (0.1-1.4) 03/27/19 10:48 Absolute Eos (auto) 0.2 10^3/uL (0.0-0.6) 03/27/19 10:48 Absolute Basos (auto) 0.1 10^3/uL (0.0-0.2) 03/27/19 10:48 Seg Neutrophils % 58.9 % (42-78) 03/27/19 10:48 Sodium 140.4 mmol/L (137-145) 03/27/19 10:48 Potassium 4.3 mmol/L (3.6-5.0) 03/27/19 10:48 Chloride 104 mmol/L (98-107) 03/27/19 10:48 Carbon Dioxide 32 mmol/L (22-30) H 03/27/19 10:48 Anion Gap 4 (5-19) L 03/27/19 10:48 BUN 9 mg/dL (7-20) 03/27/19 10:48 Creatinine 0.59 mg/dL (0.52-1.25) 03/27/19 10:48 Est GFR ( Amer) > 60 (>60) 03/27/19 10:48 Est GFR (MDRD) Non-Af > 60 (>60) 03/27/19 10:48 Glucose 125 mg/dL (75-110) H 03/27/19 10:48 POC Glucose 289 mg/dL (70-110) H 03/28/19 16:46 Hemoglobin A1c % 6.1 % (4.7-6.0) H 03/27/19 10:48 Calcium 9.3 mg/dL (8.4-10.2) 03/27/19 10:48 Total Bilirubin 0.4 mg/dL (0.2-1.3) 03/27/19 10:48 Direct Bilirubin 0.1 mg/dL (0.0-0.4) 03/27/19 10:48 Neonat Total Bilirubin Not Reportable 03/27/19 10:48 Neonat Direct Bilirubin Not Reportable 03/27/19 10:48 Neonat Indirect Bili Not Reportable 03/27/19 10:48 AST 18 U/L (14-36) 03/27/19 10:48 ALT 13 U/L (<35) 03/27/19 10:48 Alkaline Phosphatase 78 U/L (38-126) 03/27/19 10:48 Creatine Kinase 68 U/L (30-135) 03/27/19 10:48 CK-MB (CK-2) 0.56 ng/mL (<4.55) 03/27/19 10:48 Troponin I < 0.012 ng/mL 03/27/19 10:48 Total Protein 7.3 g/dL (6.3-8.2) 03/27/19 10:48 Albumin 3.7 g/dL (3.5-5.0) 03/27/19 10:48 Urine Color YELLOW 03/27/19 11:15 Urine Appearance CLEAR 03/27/19 11:15 Urine pH 6.0 (5.0-9.0) 03/27/19 11:15 Ur Specific [place] 1.012 03/27/19 11:15 Urine Protein NEGATIVE mg/dL (NEGATIVE) 03/27/19 11:15 Urine Glucose (UA) NEGATIVE mg/dL (NEGATIVE) 03/27/19 11:15 Urine Ketones NEGATIVE mg/dL (NEGATIVE) 03/27/19 11:15 Urine Blood SMALL (NEGATIVE) H 03/27/19 11:15 Urine Nitrite NEGATIVE (NEGATIVE) 03/27/19 11:15 Urine Bilirubin NEGATIVE (NEGATIVE) 03/27/19 11:15 Urine Urobilinogen NEGATIVE mg/dL (<2.0) 03/27/19 11:15 Ur Leukocyte Esterase NEGATIVE (NEGATIVE) 03/27/19 11:15 Urine WBC (Auto) 0 /HPF 03/27/19 11:15 Urine RBC (Auto) 1 /HPF 03/27/19 11:15 Squamous Epi Cells Auto 6 /HPF 03/27/19 11:15 Urine Mucus (Auto) RARE /LPF 03/27/19 11:15 Urine Ascorbic Acid NEGATIVE (NEGATIVE) 03/27/19 11:15 Influenza A (Rapid) NEGATIVE (NEGATIVE) 03/27/19 13:50 Influenza B (Rapid) NEGATIVE (NEGATIVE) 03/27/19 13:50 03/27/19 10:48 CK-MB (CK-2) 0.56 Troponin I < 0.012 Impressions: Chest X-Ray 03/27/19 09:31 IMPRESSION: NO ACUTE RADIOGRAPHIC FINDING IN THE CHEST. Stroke Is this a Stroke Patient?: No Acute Heart Failure - Is this a Heart Failure Patient?: No
== END 2019-03-28 17:40 | disposition home or self-care (01) ==
LOC: ER 09:16 → EH 13:40 → INTOOBSV 13:40 → 5 15:36
PROVIDERS: ADMIT Internal Medicine; ATTEND Internal Medicine
DX: J45.901 Unspecified asthma with (acute) exacerbation (principal); E11.9 Type 2 diabetes mellitus without complications; Z79.4 Long term (current) use of insulin; E66.01 Morbid (severe) obesity due to excess calories; R53.81 Other malaise; R09.81 Nasal congestion; R06.82 Tachypnea, not elsewhere classified; F17.210 Nicotine dependence, cigarettes, uncomplicated; R68.83 Chills (without fever); Z79.899 Other long term (current) drug therapy; Z68.42 Body mass index [BMI] 45.0-49.9, adult
CPT/HCPCS: 93005; 94640 ×4; 99285; 96365; 36415; 87070; 87205; 82553; 82962 ×2; 82550; 85025; 87077; 80053; 81001; 84484; 87186; 83036; 87804; 71045; 93010; 94010; G0378 ×2; J1815 ×4; J1644 ×2; J2920 ×2; J2930; J3475; J3490; J7620 ×2